=== PATIENT | female | born 1975 | race African-American/Black ===

== ENCOUNTER 2016-10-05 22:53 | Inpatient (IN) | payer OTHER ==
[~2016-10-05 22:53] MED LIST: LORT5TAB PO; Z.0.NO CURRENT MEDS
[2016-10-05 22:58] VITALS: BP 130/84; PULSE 83; RESP 16; TEMP 98.6; O2SAT 98
[2016-10-06] VITALS (7 sets, daily range): BP systolic 113–134; BP diastolic 78–94; PULSE 80–88; RESP 16–18; TEMP 97.9–98.3; O2SAT 97–100
[2016-10-06] MEDS ORDERED: SODIUM CHLORID 0.9% 500 ML INJ 500 ML IV ONE
[2016-10-06] MEDS ORDERED: NITROGLYCERIN 0.4 MG SL 25 TABS/BTL SL ONE
[2016-10-06] MEDS ORDERED: ASPIRIN 81 MG CHEW TAB PO ONE
--- NOTE | 2016-10-06 00:12 | RADRPT ---
EXAM DATE/TIME: 10/05/2016 23:54 [facility] COMPARISON: No previous studies available for comparison. INDICATIONS : Chest pain. MEDICAL HISTORY : None. SURGICAL HISTORY : None. ENCOUNTER: Initial ACUITY: 1 day PAIN SCORE: 6/10 LOCATION: Bilateral chest FINDINGS: A single view of the chest demonstrates the lungs to be symmetrically aerated without evidence of mas s, infiltrate or effusion. The cardiomediastinal contours are unremarkable. Osseous structures are intact. CONCLUSION: Normal examination for a patient of this age. Chance Connelly MD on October 06, 2016 at 0:11 Board Certified Radiologist. This report was verified electronically.
--- NOTE | 2016-10-06 00:36 | PD ---
HPI Chief Complaint: Chest Pain Time Seen by Provider: 23:50 Travel History International Travel<30 days: No Contact w/Intl Traveler<30days: No Traveled to known affect area: No History of Present Illness HPI The patient is a 40 year old female who presents to the [facility] emergency department with a history of constant chest pain that began at 2 PM today. It is sharp in character. It began while laying down. She has had n/v x2. She has had diaphoresis with the pain. No indigestion. No SoB. She denies having any radiation of the pain. She denies ever having a similar pain. She denies process of getting an any new exercise program or having any trauma to her chest. The patient reports that the pain is worse with taking a deep breath. It is worse with touching her chest wall. The patient denies having any cough, congestion, fever, or chills. She denies any family history of heart disease. She denies any personal history of hypertension, hyperlipidemia , or diabetes mellitus. She does report that she smokes a few cigarettes per day. She denies having any lower extremity edema, calf pain, or erythema. Otherwise on review of systems, the patient denies any neck pain, abdominal pain , diarrhea, urinary symptoms, or neurologic symptoms. She denies having any known sick contacts. LMP: hysterectomy. PFSH Past Medical History Narrative Medical The patient's past medical history is significant for chronic back pain. Medical History: Denies Significant Hx Diminished Hearing: No ?: Not : 3 Para: 2 Miscarriage: 1 : 0 Past Surgical History Narrative Surgical Patient's past surgical history is significant for a hysterectomy. Gynecologic Surgery: Yes (PARTIAL HYSTERECTOMY) Hysterectomy: Yes Social History Alcohol Use: Yes (rare) Tobacco Use: Yes (2-3 cigs per day.) Substance Use: No Allergies-Medications (Allergen,Severity, Reaction): Coded Allergies: No Known Allergies (Verified , 10/20/09) Reported Meds & Prescriptions Reported Meds & Active Scripts Active Reported Lortab (Hydrocodone-Acetaminophen) 10-325 Mg Tab 1 Tab PO TID PRN Lortab Review of Systems Except as stated in HPI: all other systems reviewed are Neg General / Constitutional: No: Fever Eyes: No: Visual changes HENT: No: Headaches, Rhinorrhea, Congestion Cardiovascular: Positive: Chest Pain or Discomfort, No: Dyspnea on exertion Respiratory: No: Shortness of Breath Gastrointestinal: Positive: Nausea, Vomiting, No: Abdominal Pain Genitourinary: No: Dysuria Musculoskeletal: No: Pain Skin: No Rash Neurologic: No: Weakness, Focal Abnormalities, Change in Mentation, Slurred Speech, Sensory Disturbance Psychiatric: No: Depression Endocrine: No: Polydipsia Hematologic/Lymphatic: No: Easy Bruising Physical Exam Narrative General: The patient is a well-developed well-nourished female in no acute distress. Head and Neck exam: Head is normocephalic atraumatic. Eyes: EOMI, pupils are equal round and reactive to light. Nose: Midline septum with pink mucous membranes Mouth: Dentition unremarkable. Moist mucus membranes. Posterior oropharynx is not erythematous. No tonsillar hypertrophy. Uvula midline. Airway patent. Neck: No palpable lymphadenopathy. No nuchal rigidity. No thyromegaly. Cardiovascular: Regular rate and rhythm without murmurs, gallops, or rubs. The patient has chest wall tenderness on palpation along the left sternal border. There is no crepitus or step-off. No erythema or ecchymosis. No flail segment. Lungs: Clear to auscultation bilaterally. No wheezes, rhonchi, or rales. Abdomen: Soft, without tenderness to palpation in all 4 quadrants of the abdomen. No guarding, rebound, or rigidity. Normal bowel sounds are audible. No tenderness on palpation of McBurney's point. Extremities: No clubbing, cyanosis, or edema. 2+ pulses in all 4 extremities. No calf tenderness on palpation. Back: No costovertebral angle tenderness to palpation. Neurologic Exam: Grossly nonfocal. Skin Exam: No rash noted. Intact skin that is warm and dry. Data Data Last Documented VS Vital Signs Date Time Temp Pulse Resp B/P Pulse Ox O2 Delivery O2 Flow Rate FiO2 10/06/16 01:00 80 18 113/78 98 Room Air 10/05/16 22:58 98.6 Orders Electrocardiogram (10/05/16 23:54) B-Type Natriuretic Peptide (10/05/16 23:54) Ckmb (Isoenzyme) Profile (10/05/16 23:54) Complete Blood Count With Diff (10/05/16 23:54) Comprehensive Metabolic Panel (10/05/16 23:54) D-Dimer (10/05/16 23:54) Magnesium (Mg) (10/05/16 23:54) Prothrombin Time / Inr (Pt) (10/05/16 23:54) Act Partial Throm Time (Ptt) (10/05/16 23:54) Troponin I (10/05/16 23:54) Lipase (10/05/16 23:54) Chest, Single Ap (10/05/16 23:54) Ecg Monitoring (10/05/16 23:54) Bilateral Bp Monitoring (10/05/16 23:54) Iv Access Insert/Monitor (10/05/16 23:54) Oximetry (10/05/16 23:54) Oxygen Administration (10/05/16 23:54) Aspirin Chew (Aspirin Chew) (10/06/16 00:00) Sodium Chloride 0.9% Flush (Ns Flush) (10/06/16 00:00) Nitroglycerin Sl (Nitrostat Sl) (10/06/16 00:00) Sodium Chlorid 0.9% 500 Ml Inj (Ns 500 M (10/06/16 00:00) Ed Urine Pregnancytest Poc (10/05/16 23:54) Sodium Chlor 0.9% 1000 Ml Inj (Ns 1000 M (10/06/16 01:15) Ondansetron Inj (Zofran Inj) (10/06/16 01:15) Ct Pulmonary Angiogram (10/06/16 01:27) Ceftriaxone Inj (Rocephin Inj) (10/06/16 02:45) Azithromycin Inj (Zithromax Inj) (10/06/16 02:45) Blood Culture (10/06/16 02:34) Ventilation & Perfusion Scan (10/06/16 ) Admit Order (Ed Use Only) (10/06/16 02:41) Labs Laboratory Tests Test 10/06/16 00:25 White Blood Count 13.5 TH/MM3 Red Blood Count 5.53 MIL/MM3 Hemoglobin 14.0 GM/DL Hematocrit 43.8 % Mean Corpuscular Volume 79.1 FL Mean Corpuscular Hemoglobin 25.4 PG Mean Corpuscular Hemoglobin 32.1 % Concent Red Cell Distribution Width 13.6 % Platelet Count 181 TH/MM3 Mean Platelet Volume 9.4 FL Neutrophils (%) (Auto) 85.1 % Lymphocytes (%) (Auto) 10.5 % Monocytes (%) (Auto) 3.9 % Eosinophils (%) (Auto) 0.0 % Basophils (%) (Auto) 0.5 % Neutrophils # (Auto) 11.5 TH/MM3 Lymphocytes # (Auto) 1.4 TH/MM3 Monocytes # (Auto) 0.5 TH/MM3 Eosinophils # (Auto) 0.0 TH/MM3 Basophils # (Auto) 0.1 TH/MM3 CBC Comment DIFF FINAL Differential Comment Prothrombin Time 10.0 SEC Prothromb Time International 0.9 RATIO Ratio Activated Partial 26.8 SEC Thromboplast Time D-Dimer Quantitative (PE/DVT) 21.60 MG/L FEU Sodium Level 134 MEQ/L Potassium Level 3.9 MEQ/L Chloride Level 98 MEQ/L Carbon Dioxide Level 27.3 MEQ/L Anion Gap 9 MEQ/L Blood Urea Nitrogen 12 MG/DL Creatinine 0.89 MG/DL Estimat Glomerular Filtration 86 ML/MIN Rate Random Glucose 117 MG/DL Calcium Level 8.7 MG/DL Magnesium Level 1.6 MG/DL Total Bilirubin 0.4 MG/DL Aspartate Amino Transf 18 U/L (AST/SGOT) Alanine Aminotransferase 13 U/L (ALT/SGPT) Alkaline Phosphatase 64 U/L Total Creatine Kinase 53 U/L Troponin I LESS THAN 0.02 NG/ML B-Type Natriuretic Peptide 4 PG/ML Total Protein 7.5 GM/DL Albumin 2.1 GM/DL Lipase 110 U/L MDM Medical Decision Making Medical Screen Exam Complete: Yes Emergency Medical Condition: Yes Medical Record Reviewed: Yes Interpretation(s) Last Impressions CT Angiography 10/06/16 0127 Signed Impressions: Service Date/Time: Thursday, October 06, 2016 02:08 - CONCLUSION: 1. Limited opacification of the pulmonary arteries. No obvious filling defects. However, if this requires further evaluation, a VQ scan could be performed if indicated. 2. Focal nonspecific infiltrate in the left lung base. This could be atelectasis versus pneumonia. 3. Nonspecific bilateral axillary lymph nodes. Chance Connelly MD Lung Scan-VQ Nuclear Medicine 10/06/16 0000 Signed Impressions: Service Date/Time: Thursday, October 06, 2016 04:01 - CONCLUSION: Unremarkable examination. Low probability for PE. Chance Connelly MD Chest X-Ray 10/05/16 5890 Signed Impressions: Service Date/Time: Wednesday, October 05, 2016 23:54 - CONCLUSION: Normal examination for a patient of this age. Chance Connelly MD Differential Diagnosis Costochondritis, versus pleurisy, versus pneumonia, versus viral syndrome, versus thorax, versus acute coronary syndrome, versus acid reflux, versus anxiety versus pulmonary embolism Narrative Course During the course of the patients emergency department visit, the patients history, examination, and differential diagnosis were reviewed with the patient. The patient had IV access obtained and blood work sent for analysis. The patient was placed on a cardiac surgeon with oximetry and blood pressure monitoring. An ECG was done on arrival. The patient's ECG reveals a sinus rhythm heart rate of 83, QRS duration is 88 ms, QTC 417 ms without any acute ST segment elevation, nonspecific T-wave abnormalities are noted, T waves are inverted in lead 3, V1. The patient was initially provided aspirin 162 mg by mouth 1. The patient was given normal saline 500 mL bolus, Zofran 4 mg IV. The patients laboratory studies were reviewed and remarkable for d-dimer was elevated at 21.6, CTA to rule out PE was ordered. A white count of 13.5, hemoglobin 14, platelets 181 with 85.1 neutrophils, CMP is remarkable for sodium 134, glucose 117, CPK 53, troponin I less than 0.02, BNP 4, lipase 110, PT 10, PTT 26.8. Radiology studies were reviewed and remarkable for a chest x-ray that shows no acute cardiopulmonary disease. CTA to rule out PE showed a limited study with limited opacification of the pulmonary arteries, no obvious filling defects, however if this requires further evaluation of VQ scan could be performed. Focal nonspecific INFILTRATE in the left lung base, nonspecific bilateral axillary lymph nodes are noted. The patient was started on Rocephin 1 g IV, Zithromax 500 IV as the area of infiltrate is concerning for pneumonia as she does have an elevated white blood cell count. Blood cultures 2 were ordered to be obtained prior to antibiotic administration. The patients results were discussed with the patient, including the plan of care. I explained that further testing and/ or monitoring is indicated based on the patients history, examination, and/ or laboratory findings. Therefore, I recommended admission for additional evaluation. The patient expressed understanding and was agreeable with this plan. The patient was admitted to the hospital in stable condition and [facility] Physician Communication Physician Communication The patient's case was discussed with Dr. Mccabe who did agree to admit the patient for further evaluation and treatment at this time. Diagnosis Primary Impression: Chest pain Qualified Code: R07.9 - Chest pain, unspecified type Additional Impression: Lung infiltrate on CT Admitting Information Admitting Physician Requests: Admit Liane Auguste MD Oct 06, 2016 00:36
[2016-10-06 00:46] LABS: AUTOMATED NEUTROPHIL # 11.5 TH/MM3 (1.8-7.7); BASOPHIL # 0.1 TH/MM3 (0-0.2); BASOPHIL % 0.5 % (0.0-2.0); HEMATOCRIT 43.8 % (35.0-46.0); HEMO FLAGS DIFF FINAL; LYMPH % 10.5 % (9.0-44.0); LYMPHOCYTE # 1.4 TH/MM3 (1.0-4.8); MEAN CELL VOLUME 79.1 FL (80.0-100.0); MEAN CORPUSCULAR HEMOGLOBIN 25.4 PG (27.0-34.0); MEAN CORPUSCULAR HGB CONC 32.1 % (32.0-36.0); MONO % 3.9 % (0.0-8.0); NEUT % 85.1 % (16.0-70.0); PLATELET COUNT 181 TH/MM3 (150-450); RED BLOOD COUNT 5.53 MIL/MM3 (4.00-5.30); RED CELL DISTRIBUTION WIDTH 13.6 % (11.6-17.2); WHITE BLOOD COUNT 13.5 TH/MM3 (4.0-11.0)
[2016-10-06 00:50] LABS: ALT (GPT) 13 U/L (10-53)
[2016-10-06 00:54] LABS: ALKALINE PHOSPHATASE 64 U/L (45-117); TOTAL BILIRUBIN ADULT 0.4 MG/DL (0.2-1.0)
[2016-10-06 00:55] LABS: ANION GAP 9 MEQ/L (5-15); AST (GOT) 18 U/L (15-37); BICARBONATE 27.3 MEQ/L (21.0-32.0); BLOOD UREA NITROGEN 12 MG/DL (7-18); CHLORIDE 98 MEQ/L (98-107); GLOMERULAR FILTRATION RATE 86 ML/MIN (>89); MAGNESIUM 1.6 MG/DL (1.5-2.5); POTASSIUM 3.9 MEQ/L (3.5-5.1); SODIUM (NA) 134 MEQ/L (136-145)
[2016-10-06 00:56] LABS: CREATINE KINASE 53 U/L (26-192)
[2016-10-06 01:03] LABS: APTT (PATIENT) 26.8 SEC (24.3-30.1); INTERNATIONAL NORMALIZED RATIO 0.9 RATIO
[2016-10-06] MEDS ORDERED: ONDANSETRON HCL 4 MG/2 ML VIAL IV ONE (01:15)
[2016-10-06] MEDS ORDERED: SODIUM CHLOR 0.9% 1000 ML INJ 1,000 ML IV ONE (01:15)
[2016-10-06] MEDS ORDERED: HYDR-3535 PO (01:17)
[2016-10-06] MEDS ORDERED: IOHEXOL 350 MG/ML 10 ML VIAL (for RAD DIAG) IV ONE (02:08)
--- NOTE | 2016-10-06 02:23 | RADRPT ---
EXAM DATE/TIME: 10/06/2016 02:08 [facility] COMPARISON: No previous studies available for comparison. INDICATIONS : Chest pain and evelvated D-Dimer. IV CONTRAST: 75 cc Omnipaque 350 (iohexol) IV RADIATION DOSE: 23.25 CTDIvol (mGy) MEDICAL HISTORY : None SURGICAL HISTORY : Hysterectomy. ENCOUNTER: Initial ACUITY: 1 day PAIN SCALE: 7/10 LOCATION: Bilateral chest TECHNIQUE: Volumetric scanning of the chest was performed using a pulmonary embolism protocol MIP images were re constructed. Using automated exposure control and adjustment of the mA and/or kV according to patien t size, radiation dose was kept as low as reasonably achievable to obtain optimal diagnostic quality images. DICOM format image data is available electronically for review and comparison. Follow-up recommendations for incidentally detected pulmonary nodules are based at a minimum on nodul e size and patient risk factors according to Fleischner Society Guidelines. FINDINGS: PULMONARY ARTERIES: There is limited opacification of the pulmonary arteries. No definite filling defects are seen. LUNGS: Focal mild infiltrate in the left lung base. Otherwise, the lungs are clear and well-aerated. PLEURAE: There is no pleural thickening or pleural effusion. MEDIASTINUM: There is good visualization of the great vessels of the middle mediastinum. No evidence of mediastin al or hilar adenopathy/mass. MUSCULOSKELETAL: Within normal limits for patient age. MISCELLANEOUS: There is a nonspecific bilateral axillary lymph nodes. CONCLUSION: 1. Limited opacification of the pulmonary arteries. No obvious filling defects. However, if this requ ires further evaluation, a VQ scan could be performed if indicated. 2. Focal nonspecific infiltrate in the left lung base. This could be atelectasis versus pneumonia. 3. Nonspecific bilateral axillary lymph nodes. Chance Connelly MD on October 06, 2016 at 2:18 Board Certified Radiologist. This report was verified electronically.
[2016-10-06] MEDS ORDERED: SODIUM CHLORIDE 0.9% FLUSH 10 ML FLUSH IVF PRN ×2 (02:45)
[2016-10-06] MEDS ORDERED: ONDANSETRON HCL 4 MG/2 ML VIAL IV PRN (02:45)
[2016-10-06] MEDS ORDERED: AZITHROMYCIN INJ 500 MG in SODIUM CHLOR 0.9% 250 ML INJ 250 ML IV ONE (02:45)
[2016-10-06] MEDS ORDERED: cefTRIAXone INJ 1,000 MG in SODIUM CHLORIDE 0.9% INJ 100 ML IV ONE (02:45)
--- NOTE | 2016-10-06 05:13 | RADRPT ---
EXAM DATE/TIME: 10/06/2016 04:01 [facility] COMPARISON: CHEST SINGLE AP, October 05, 2016, 23:54. INDICATIONS : Chest pain. DOSE: 1.8 mCi Tc99m DTPA 8.8 mCi Tc99m MAA MEDICAL HISTORY : Smoker. SURGICAL HISTORY : Hysterectomy. ENCOUNTER: Initial ACUITY: 1 day PAIN SCALE: 3/10 LOCATION: chest TECHNIQUE: Following five minutes of tidal breathing of DTPA aerosol, planar images of the lungs were performed in eight projections. The patient was then injected with MAA, and eight-view perfusion scan was perf ormed. FINDINGS: There is a homogeneous pattern of aerosol delivery to the periphery of both lungs. No focal ventilat ory defects are seen. The perfusion lung scan demonstrates a homogenous pattern of uptake in both lungs. No segmental or s ubsegmental defects are seen. CONCLUSION: Unremarkable examination. Low probability for PE. Chance Connelly MD on October 06, 2016 at 5:12 Board Certified Radiologist. This report was verified electronically.
[2016-10-06] MEDS: SODIUM CHLOR 0.9% 1000 ML INJ 1,000 ML IV SCH ×2 (05:26→11:21)
[2016-10-06 08:08] LABS: CREATINE KINASE 35 U/L (26-192)
--- NOTE | 2016-10-06 08:51 | EKG ---
Date Performed: 10/06/2016 Time Performed: 00:19:11 PTAGE: 40 years EKG: Sinus rhythm MINIMAL VOLTAGE CRITERIA FOR LVH, CONSIDER NORMAL VARIANT NONSPECIFIC T-WAVE ABNORMALITY BORDERLINE ECG PREVIOUS TRACING : 02/02/2006 06.44 DOCTOR: Guilherme Aceves Interpretating Date/Time 10/06/2016 08:50:37
[2016-10-06] MEDS ORDERED: SODIUM CHLORIDE 0.9% FLUSH 10 ML FLUSH IV FLUSH SCH (09:00)
[2016-10-06] MEDS ORDERED: ACETAMINOPHEN/HYDROcodone 325 MG/5 MG TAB PO PRN (09:15)
--- NOTE | 2016-10-06 10:41 | EKG ---
Date Performed: 10/06/2016 Time Performed: 07:33:23 PTAGE: 40 years EKG: Sinus rhythm NORMAL ECG PREVIOUS TRACING : 10/06/2016 00.19 DOCTOR: Guilherme Aceves Interpretating Date/Time 10/06/2016 10:40:26
--- NOTE | 2016-10-06 14:36 | HHI.HP ---
HPI Service [facility] Hospitalists Primary Care Physician No Primary Care Physician Admission Diagnosis CP, Pneumonia, n/v Chief Complaint: chest pain Travel History International Travel<30 Days: No Contact w/Intl Traveler <30 Da: No Traveled to Known Affected Are: No History of Present Illness Patient is a pleasant 40-year-old female who presented to the ER last night with complaint of continuous chest pain. Per patient the pain had been ongoing for approximately 8 hours. She feels that it may have started after a twisting movement was made in her torso. Patient states that the pain was associated with nausea and she vomited twice. Patient denies associated shortness of breath. Patient states that she had diaphoresis. Patient denies similar episodes of same. Patient feels the pain is now improved after receiving hydrocodone. Patient points to her left mid chest with radiation under left breast and to the left side. Patient states that previously the pain was reproducible with palpation and worse with deep breaths. Patient denies trauma. Patient denies history of coronary disease. Patient had an elevated d-dimer. CTA of the chest showed limited opacification of the pulmonary arteries. A VQ scan was also done which was low probability. Patient appears comfortable on room air. Review of Systems Constitutional: COMPLAINS OF: Diaphoretic episodes, DENIES: Fatigue, Fever, Weight gain, Weight loss, Chills, Dizziness, Change in appetite, Night Sweats Endocrine: DENIES: Heat/cold intolerance, Polydipsia, Polyuria, Polyphagia Eyes: DENIES: Blurred vision, Diplopia, Eye inflammation, Eye pain, Vision loss , Photosensitivity, Double Vision Ears, nose, mouth, throat: DENIES: Tinnitus, Hearing loss, Vertigo, Nasal discharge, Oral lesions, Throat pain, Hoarseness, Ear Pain, Running Nose, Epistaxis, Sinus Pain, Toothache, Odynophagia Respiratory: DENIES: Apneas, Cough, Snoring, Wheezing, Hemoptysis, Sputum production, Shortness of breath Cardiovascular: COMPLAINS OF: Chest pain, DENIES: Palpitations, Syncope, Dyspnea on Exertion, PND, Lower Extremity Edema, Orthopnea, Claudication Gastrointestinal: DENIES: Abdominal pain, Black stools, Bloody stools, BRB per rectum, Constipation, Diarrhea, GERD, Nausea, Reflux, Vomiting, Difficulty Swallowing, Anorexia Genitourinary: DENIES: Urinary frequency, Urinary incontinence, Urgency, Hematuria, Dysuria, Nocturia Musculoskeletal: DENIES: Joint pain, Muscle aches, Stiffness, Joint Swelling, Back pain, Neck pain Integumentary: DENIES: Abnormal pigmentation, Pruritus, Rash, Nail changes, Breast masses, Breast skin changes, Nipple discharge Hematologic/lymphatic: DENIES: Bruising, Lymphadenopathy Immunologic/allergic: DENIES: Eczema, Urticaria Neurologic: DENIES: Abnormal gait, Headache, Localized weakness, Paresthesias, Seizures, Speech Problems, Tremor, Poor Balance Psychiatric: DENIES: Anxiety, Confusion, Mood changes, Depression, Hallucinations, Agitation, Suicidal Ideation, Homicidal Ideation, Delusions, History of Bipolar, History of Schizophrenia Past Family Social History Past Medical History - Chronic low back pain Past Surgical History - Hysterectomy, sparing fallopian tubes and ovaries Reported Medications Reported Meds & Active Scripts Active Reported Lortab (Hydrocodone-Acetaminophen) 10-325 Mg Tab 1 Tab PO TID PRN Allergies: Coded Allergies: No Known Allergies (Verified , 10/20/09) Family History - Mother living age 67, osteoarthritis, hypertension, hyperlipidemia - Father age 60 due to lung cancer - Brother secondary to overdose Social History - Tobacco: 2-3 cigarettes per day for the last 3-4 years - No alcohol use - No illicit street drugs Physical Exam Vital Signs Vital Signs Date Time Temp Pulse Resp B/P Pulse Ox O2 Delivery O2 Flow Rate FiO2 10/06/16 12:00 83 10/06/16 11:34 98.3 87 18 134/94 97 10/06/16 08:37 98.1 84 16 123/82 100 10/06/16 08:00 88 10/06/16 05:36 97.9 85 18 132/82 98 10/06/16 03:28 98 10/06/16 01:00 80 18 113/78 98 Room Air 10/05/16 22:58 98.6 83 16 130/84 98 Physical Exam GENERAL: This is a well-nourished, well-developed patient, in no apparent distress. SKIN: No rashes, ecchymoses or lesions. Cool and dry. HEAD: Atraumatic. Normocephalic. No temporal or scalp tenderness. EYES: Pupils equal round and reactive. Extraocular motions intact. No scleral icterus. No injection or drainage. ENT: Nose without bleeding, purulent drainage or septal hematoma. Throat without erythema, tonsillar hypertrophy or exudate. Uvula midline. Airway patent. NECK: Trachea midline. No JVD or lymphadenopathy. Supple, nontender, no meningeal signs. CARDIOVASCULAR: Regular rate and rhythm without murmurs, gallops, or rubs. RESPIRATORY: Clear to auscultation. Breath sounds equal bilaterally. No wheezes , rales, or rhonchi. GASTROINTESTINAL: Abdomen soft, non-tender, nondistended. No hepato-splenomegaly , or palpable masses. No guarding. MUSCULOSKELETAL: Extremities without clubbing, cyanosis, or edema. No joint tenderness, effusion, or edema noted. No calf tenderness. Negative Homans sign bilaterally. NEUROLOGICAL: Awake and alert. Cranial nerves II through XII intact. Motor and sensory grossly within normal limits. Five out of 5 muscle strength in all muscle groups. Normal speech. Laboratory Laboratory Tests Test 10/06/16 10/06/16 00:25 07:13 White Blood Count 13.5 Red Blood Count 5.53 Hemoglobin 14.0 Hematocrit 43.8 Mean Corpuscular Volume 79.1 Mean Corpuscular Hemoglobin 25.4 Mean Corpuscular Hemoglobin 32.1 Concent Red Cell Distribution Width 13.6 Platelet Count 181 Mean Platelet Volume 9.4 Neutrophils (%) (Auto) 85.1 Lymphocytes (%) (Auto) 10.5 Monocytes (%) (Auto) 3.9 Eosinophils (%) (Auto) 0.0 Basophils (%) (Auto) 0.5 Neutrophils # (Auto) 11.5 Lymphocytes # (Auto) 1.4 Monocytes # (Auto) 0.5 Eosinophils # (Auto) 0.0 Basophils # (Auto) 0.1 CBC Comment DIFF FINAL Differential Comment Prothrombin Time 10.0 Prothromb Time International 0.9 Ratio Activated Partial 26.8 Thromboplast Time D-Dimer Quantitative (PE/DVT) 21.60 Sodium Level 134 Potassium Level 3.9 Chloride Level 98 Carbon Dioxide Level 27.3 Anion Gap 9 Blood Urea Nitrogen 12 Creatinine 0.89 Estimat Glomerular Filtration 86 Rate Random Glucose 117 Calcium Level 8.7 Magnesium Level 1.6 Total Bilirubin 0.4 Aspartate Amino Transf 18 (AST/SGOT) Alanine Aminotransferase 13 (ALT/SGPT) Alkaline Phosphatase 64 Total Creatine Kinase 53 35 Troponin I LESS THAN 0.02 LESS THAN 0.02 B-Type Natriuretic Peptide 4 Total Protein 7.5 Albumin 2.1 Lipase 110 Date/Time Procedure Status Source Growth 10/06/16 03:15 Aerobic Blood Culture Received Blood Peripheral Pending 10/06/16 03:15 Anaerobic Blood Culture Received Blood Peripheral Pending Result Diagram: 10/06/16 0025 10/06/16 0025 Imaging GENERAL: This is a well-nourished, well-developed patient, in no apparent distress. CARDIOVASCULAR: Regular rate and rhythm without murmurs, gallops, or rubs. RESPIRATORY: Clear to auscultation. Breath sounds equal bilaterally. No wheezes , rales, or rhonchi. GASTROINTESTINAL: Abdomen soft, non-tender, nondistended. Normal active bowel sounds MUSCULOSKELETAL: Extremities without clubbing, cyanosis, or edema. NEURO: Alert & Oriented x4 to person, place, time, situation. Moves all ext x4 Septic Shock Reassessment Heart: Regular rate and rhythm Lungs: Clear Skin: Warm Peripheral Pulses: Bounding Right Radial Bounding Left Radial Bounding Right Popliteal Bounding Left Popliteal Bounding Right Dorsalis Pedis Bounding Left Dorsalis Pedis Bounding Right Posterior Tibial Bounding Left Posterior Tibial Capillary Refill: Brisk Assessment and Plan Problem List: (1) Atypical chest pain Status: Acute Plan: - Patient complains of reproducible chest pain following twisting motion of her torso - Pain improved with hydrocodone - 2 sets of cardiac enzymes were obtained and both normal - Serial EKGs showed no acute ischemic changes - Patient has no history of personal coronary disease nor family history of coronary disease - Symptoms are unlikely to represent acute coronary syndrome given above findings - Most likely this is muscular skeletal chest pain - Findings on CTA of chest and VQ scan noted - Patient denies cough. Patient denies sweats or fever. Patient is comfortable on room air - Patient received Rocephin and azithromycin in the ER - Patient does not appear to have pneumonia - I note the minimal elevation in her white count, however there has been no fever nor clinical signs consistent with pneumonia - I will not continue antibiotics further at this point - Discharge to home on Naprosyn 500 mg by mouth twice a day 1 week, to be taken with food - [place] 5325 mg every 6 hours when necessary pain, quantity 12 - Patient is instructed to follow-up with her [facility] primary care physician, Dr. Noman Guardado - Return to the ER if any problems Mata Aragon DO Oct 06, 2016 14:36
[2016-10-06] MEDS ORDERED: HYDR-3516 PO (14:38)
[2016-10-06] MEDS ORDERED: NAPR500 PO (14:38)
--- NOTE | 2016-10-06 14:40 | HHI.DCPOC ---
Discharge Care Plan Diagnosis: (1) Atypical chest pain Goals to Promote Your Health * To prevent worsening of your condition and complications * To maintain your health at the optimal level Directions to Meet Your Goals Take your medications as prescribed Follow your dietary instruction Follow activity as directed Keep your appointments as scheduled Take your immunizations and boosters as scheduled If your symptoms worsen call your PCP, if no PCP go to Urgent Care Center or Emergency Room Smoking is Dangerous to Your Health. Avoid second hand smoke Call the 24-hour hour crisis hotline for domestic abuse at Mata Aragon DO Oct 06, 2016 14:40
[2016-10-06 16:10] LABS: CREATINE KINASE 30 U/L (26-192)
--- NOTE | 2016-10-07 15:09 | EKG ---
Date Performed: 10/06/2016 Time Performed: 13:01:17 PTAGE: 40 years EKG: Sinus rhythm MINIMAL VOLTAGE CRITERIA FOR LVH, CONSIDER NORMAL VARIANT NONSPECIFIC T-WAVE ABNORMALITY Intraventri cular conduction delay Likely no significant change BORDERLINE ECG PREVIOUS TRACING : 10/06/2016 07.33 DOCTOR: Adelaida Saleh Interpretating Date/Time 10/07/2016 15:03:25
== END 2016-10-06 15:09 | disposition home or self-care (01) | DRG 313 ==
LOC: NEPC 22:53 → NEDA 10-06 02:43 → NEPFCDU 10-06 05:32
PROVIDERS: ADMIT Hospitalist; ATTEND Hospitalist
DX: R07.89 Other chest pain (principal); F17.210 Nicotine dependence, cigarettes, uncomplicated; G89.29 Other chronic pain; M54.5 Low back pain
CPT/HCPCS: 71010; 71275; 78582; 80053; 82550; 83690; 83735; 83880; 84484; 85025; 85379; 85610; 85730; 87040; 93005; A9540; A9567; J0456; J0696; J2405; J7030; J7040; J7050; Q9967

== ENCOUNTER 2016-12-30 08:15 | Inpatient (IN) | payer OTHER ==
[2016-12-30] VITALS (15 sets, daily range): BP systolic 131–180; BP diastolic 66–114; PULSE 59–84; RESP 18; TEMP 97.8–98.6; O2SAT 97–100
[~2016-12-30] VITALS: Ht 172.7 cm; Wt 81.1 kg
[~2016-12-30 08:15] MED LIST changes: +HYDR-3516 PO; -LORT5TAB PO; +NAPR500 PO; -Z.0.NO CURRENT MEDS
[2016-12-30] MEDS ORDERED: SODIUM CHLOR 0.9% 1000 ML INJ 1,000 ML IV ONE (08:20)
--- NOTE | 2016-12-30 08:25 | PD ---
HPI Chief Complaint: Neuro Symptoms/ Deficits Time Seen by Provider: 08:20 Travel History International Travel<30 days: No Contact w/Intl Traveler<30days: No Traveled to known affect area: No History of Present Illness HPI This is a 41-year-old female with a history of hypertension, not currently on medication, presents today with right sided facial droop and right upper and right lower extremity weakness. The patient states that she went to bed last night. She states at that time she had elevated blood pressure with no symptoms. She states that she woke up around 6 AM. Her mom states that she saw her at 6:30 and thought that she was appearing normal. She reports not feeling "right" last night. She states at that time she checked her blood pressure and found it to be elevated. PFSH Past Medical History Cancer: No Cardiovascular Problems: No Diminished Hearing: No Endocrine: No Genitourinary: No Immune Disorder: No Musculoskeletal: Yes Neurologic: No Psychiatric: No Reproductive: No Respiratory: Yes (NEW DX OF LLL PNEUMONIA) : 3 Para: 2 Miscarriage: 1 : 0 Past Surgical History Gynecologic Surgery: Yes (PARTIAL HYSTERECTOMY) Hysterectomy: Yes Social History Alcohol Use: Yes (rare) Tobacco Use: Yes (2-3 cigs per day.) Substance Use: No Allergies-Medications (Allergen,Severity, Reaction): Coded Allergies: No Known Allergies (Verified , 12/30/16) Reported Meds & Prescriptions Reported Meds & Active Scripts Active Reported Hydrocodone-Acetaminophen 5-325 mg Tab 1 Tab PO Q6H PRN Review of Systems Except as stated in HPI: all other systems reviewed are Neg General / Constitutional: No: Fever, Chills Eyes: No: Diploplia, Blurred Vision HENT: No: Headaches, Neck Pain Cardiovascular: No: Chest Pain or Discomfort, Palpitations Respiratory: No: Cough, Shortness of Breath Gastrointestinal: No: Nausea, Vomiting Genitourinary: No: Frequency, Dysuria Musculoskeletal: No: Weakness, Pain Neurologic: Positive: Weakness (right upper and right lower extremity), Focal Abnormalities (right upper and right lower extremity weakness.), Other (right sided facial droop), No: Dizziness, Headache, Change in Mentation, Slurred Speech, Sensory Disturbance Psychiatric: No: Anxiety, Substance Abuse Physical Exam Narrative GENERAL: Well-developed well-nourished female in no obvious respiratory distress. SKIN: Focused skin assessment warm/dry. HEAD: Atraumatic. Normocephalic. EYES: Pupils equal and round. Extraocular muscles are intact. No scleral icterus. No injection or drainage. ENT: No nasal bleeding or discharge. Mucous membranes pink and moist. NECK: Trachea midline. Supple. CARDIOVASCULAR: Regular rate and rhythm. No murmur appreciated. RESPIRATORY: No accessory muscle use. Clear to auscultation. Breath sounds equal bilaterally. GASTROINTESTINAL: Abdomen soft, non-tender, nondistended. Hepatic and splenic margins not palpable. MUSCULOSKELETAL: No obvious deformities. No clubbing. No cyanosis. No edema. NEUROLOGICAL: Awake and alert. Slight right sided facial droop. Motor grossly within normal limits on the left side, upper and lower. 4+ out of 5 on the right upper and right lower extremity. Normal speech. PSYCHIATRIC: Appropriate mood and affect; insight and judgment normal. Data Data Last Documented VS Vital Signs Date Time Temp Pulse Resp B/P (MAP) Pulse Ox O2 Delivery O2 Flow Rate FiO2 12/30/16 10:15 63 18 169/112 (131) 100 Room Air 12/30/16 08:46 98.4 Orders Orders Activity Bed Rest (12/30/16 ) Electrocardiogram (12/30/16 ) I-Stat Creatinine (12/30/16 08:20) I-Stat Profile (12/30/16 08:20) Prothrombin Time / Inr (Pt) (12/30/16 08:20) Act Partial Throm Time (Ptt) (12/30/16 08:20) Complete Blood Count With Diff (12/30/16 08:20) Fibrinogen (12/30/16 08:20) Creatine Kinase (Cpk) (12/30/16 08:20) Troponin I (12/30/16 08:20) Ua Includes Microscopic (12/30/16 08:20) Drug Screen, Random Urine (12/30/16 08:20) Type And Screen (12/30/16 08:20) Ct Brain W/O Iv Contrast(Rout) (12/30/16 ) Beta Hcg (Quant/Titer) (12/30/16 08:20) Consult Neurology (12/30/16 ) Blood Glucose (12/30/16 08:20) Ecg Monitoring (12/30/16 08:20) Neuro Checks Q2HX12,Q4H (12/30/16 08:20) Nursing Bedside Swallow Assess .ONCE (12/30/16 08:20) Iv Access Insert/Monitor (12/30/16 08:20) NPO (12/30/16 08:20) Oximetry (12/30/16 08:20) Oxygen Administration (12/30/16 08:20) Sodium Chlor 0.9% 1000 Ml Inj (Ns 1000 M (12/30/16 08:20) Resp Oxygen Bc C Titrat 1-4 L (12/30/16 08:20) Cath For Specimen (12/30/16 08:20) Metoprolol Tartrate Inj (Lopressor Inj) (12/30/16 08:30) Cta Brain W Iv Contrast W 3d (12/30/16 08:26) Cta Neck W Iv Contrast W 3d (12/30/16 08:26) Ct Cerebral Perf W Iv Cont W3d (12/30/16 08:26) (Hub Use Only)Inp Phy Cons/Ref (12/30/16 ) Iodixanol 320 Inj (Rad Ct) (Visipaque 32 (12/30/16 08:47) Nih Stroke Scale - Nihss .On admission and discharge (12/30/16 09:08) Neuro Checks Q2H (12/30/16 09:08) Case Management Consult (12/30/16 ) Activity Bed Rest (12/30/16 09:08) Nursing Bedside Swallow Assess .ONCE (12/30/16 09:08) Scd Bilateral/Knee High EMORY.QSHIFT (12/30/16 09:08) Hemoglobin (Hgb) A1c (12/30/16 09:08) Lipid Profile (12/31/16 06:00) Mra Brain W/O Contrast (Cow) (12/30/16 ) Mri Brain W/O Contrast (12/30/16 ) Echo 2d Comp With Doppler (12/30/16 ) Resp Oxygen Bc C Titrat 1-4 L (12/30/16 ) ^ Hold Medication (12/30/16 09:08) Sodium Chloride 0.9% Flush (Ns Flush) (12/30/16 21:00) Sodium Chloride 0.9% Flush (Ns Flush) (12/30/16 09:15) Sodium Chlor 0.9% 1000 Ml Inj (Ns 1000 M (12/30/16 09:08) Enalaprilat Inj (Vasotec Inj) (12/30/16 09:15) Aspirin Supp (Aspirin Supp) (12/30/16 09:15) Bedside Glucose EMORY.CSUGAR (12/30/16 09:08) ^ Discontinue Insulin Orders (12/30/16 09:08) Insulin Aspart Supplemtl Scale (Novolog (12/30/16 12:00) Dextrose 50% In Chiquis (Vial) Inj (D50w (Vi (12/30/16 09:15) Glucagon Inj (Glucagon Inj) (12/30/16 09:15) Rustic Terrazzo Setter / Telemetry EMORY.Q8H (12/30/16 09:08) Consult Stroke Navigator (12/30/16 ) Lupus Anticoagulant Drvvt (12/30/16 09:08) Cardiolipin Abs Igg,Igm,Iga (12/30/16 09:08) Protein C Activity (12/30/16 09:08) Protein S Activity (12/30/16 09:08) Factor V (5) Mutation (Leiden) (12/30/16 09:08) Prothrombin [id number] Mutation (12/30/16 09:08) Westergren Sedimentation Rate (12/30/16 09:08) Rapid Plasmin Reagin Screen (12/30/16 09:08) Lorazepam Inj (Ativan Inj) (12/30/16 09:45) (Hub Use Only)Inp Phy Cons/Ref (12/30/16 09:41) Admit To Inpatient (12/30/16 ) Code Status (12/30/16 09:43) Vital Signs (Adult) Q4H (12/30/16 09:43) Nih Stroke Scale - Nihss .On admission and discharge (12/30/16 09:43) Neuro Checks Q4H (12/30/16 09:43) Notify Dr: Other (12/30/16 09:43) Consult Pt Eval & Treat (12/30/16 09:43) Activity Bed Rest (12/30/16 09:43) Nursing Bedside Swallow Assess .ONCE (12/30/16 09:43) Scd Bilateral/Knee High EMROY.QSHIFT (12/30/16 09:43) Hemoglobin (Hgb) A1c (12/30/16 09:43) Holter Monitor Recording (12/30/16 ) Resp Oxygen Bc C Titrat 1-4 L (12/30/16 ) ^ Hold Medication (12/30/16 09:43) Sodium Chloride 0.9% Flush (Ns Flush) (12/30/16 21:00) Sodium Chloride 0.9% Flush (Ns Flush) (12/30/16 09:45) Enalaprilat Inj (Vasotec Inj) (12/30/16 09:45) Labetalol Inj (Trandate Inj) (12/30/16 09:45) Aspirin (Aspirin) (12/31/16 09:00) Atorvastatin (Lipitor) (12/30/16 21:00) Rustic Terrazzo Setter / Telemetry EMORY.Q8H (12/30/16 09:43) Scd Bilateral/Knee High EMORY.BID (12/30/16 09:43) Inpatient Certification (12/30/16 ) Diet Heart Healthy (12/30/16 Breakfast) 1/2 Ns + Kcl 20 Meq Inj (1/2 Ns + Kcl 20 (12/30/16 10:00) Thyroid Stimulating Hormone (12/30/16 09:48) Free Thyroxine (T4) (12/30/16 09:48) Rapid Plasma Regin (Rpr) W Ttr (12/30/16 09:48) Vitamin B12 (12/30/16 09:48) Folate, Serum (12/30/16 09:48) Ammonia (12/30/16 09:48) Acetaminophen (Tylenol) (12/30/16 10:00) Admit Order (Ed Use Only) (12/30/16 10:30) Labs Laboratory Tests Test 12/30/16 08:20 12/30/16 08:57 White Blood Count 5.8 TH/MM3 Red Blood Count 5.02 MIL/MM3 Hemoglobin 13.0 GM/DL Bedside Hemoglobin 13.9 G/DL Hematocrit 39.6 % Bedside Hematocrit 41.0 % Mean Corpuscular Volume 78.8 FL Mean Corpuscular Hemoglobin 26.0 PG Mean Corpuscular Hemoglobin Concent 32.9 % Red Cell Distribution Width 13.9 % Platelet Count 179 TH/MM3 Mean Platelet Volume 8.6 FL Neutrophils (%) (Auto) 56.5 % Lymphocytes (%) (Auto) 35.5 % Monocytes (%) (Auto) 6.6 % Eosinophils (%) (Auto) 0.2 % Basophils (%) (Auto) 1.2 % Neutrophils # (Auto) 3.3 TH/MM3 Lymphocytes # (Auto) 2.1 TH/MM3 Monocytes # (Auto) 0.4 TH/MM3 Eosinophils # (Auto) 0.0 TH/MM3 Basophils # (Auto) 0.1 TH/MM3 CBC Comment DIFF FINAL Differential Comment Prothrombin Time 9.9 SEC Prothromb Time International Ratio 0.9 RATIO Activated Partial Thromboplast Time 27.2 SEC Fibrinogen 699 mg/dL Bedside Sodium 139 MMOL/L Bedside Potassium 4.1 MMOL/L Bedside Chloride 103 MMOL/L Bedside Blood Urea Nitrogen 11 MG/DL Bedside Creatinine 0.9 MG/DL Bedside Glucose 99 MG/DL Total Creatine Kinase 117 U/L Troponin I LESS THAN 0.02 NG/ML Human Chorionic Gonadotropin, Quant LESS THAN 1 MIU/ML Urine Color LIGHT-YELLOW Urine Turbidity HAZY Urine pH 7.5 Urine Specific [place] 1.026 Urine Protein 100 mg/dL Urine Glucose (UA) NEG mg/dL Urine Ketones NEG mg/dL Urine Occult Blood MOD Urine Nitrite NEG Urine Bilirubin NEG Urine Urobilinogen LESS THAN 2.0 MG/DL Urine Leukocyte Esterase SMALL Urine RBC 12 /hpf Urine WBC 22 /hpf Urine Squamous Epithelial Cells 14 /hpf Urine Bacteria OCC /hpf Urine Mucus FEW /lpf Urine Opiates Screen NEG Urine Barbiturates Screen NEG Urine Amphetamines Screen NEG Urine Benzodiazepines Screen NEG Urine Cocaine Screen NEG Urine Cannabinoids Screen POS MDM Medical Screen Exam Complete: Yes Emergency Medical Condition: Yes Differential Diagnosis Hypertensive emergency versus CVA versus Milian's palsy Narrative Course 41-year-old female presents with right sided facial droop and right upper and right lower extremity weakness. The patient states she woke up this way. Upon further questioning after CT scan patient also states that she may have had some early symptoms last night prior to bed. The patient certainly out of the window for TPA. She was seen and evaluated by Dr. Heath Sahni, neurologist on- call today. He agrees at this time that she is not a TPA candidate. She is noted to have a blood pressure of 180/114. In agreement with Dr. Sahni, the patient was given Lopressor 5 mg I V times one dose. [facility] She will be getting an of the brain. Currently the working diagnosis is CVA versus TIA versus hypertensive emergency. Critical Care Narrative Aggregate critical care time was 45 minutes. Time to perform other separately billable procedures was not included in the critical care time. My time did not include minutes spent treating any other patients simultaneously or on activities that did not directly contribute to the patient's treatment. The services I provided to this patient were to treat and/or prevent clinically significant deterioration that could result in: I provided critical care services requiring my management, as noted below: Chart data review, documentation time, medication orders and management, vital sign assessments/reviewing monitor data, ordering and reviewing lab tests, ordering and interpreting/reviewing x-rays and diagnostic studies, care of the patient and discussion of the patient with the admitting physicians. Stroke Alert NIHSS NIH Stroke Scale Result: 5 NIHSS Time Completed: 08:25 Thrombolytic Contraindications Contraindications: Uncontrolled HTN at event Contraindications Comment: Patient reports waking up with the symptoms. Mother told nurse that she last saw her at 6:30 normal. Diagnosis Diagnosis: Primary Impression: CVA (cerebral vascular accident) Additional Impression: Uncontrolled hypertension Admitting Physician Requests: Admit Clifford Whitmore MD Dec 30, 2016 08:25
--- NOTE | 2016-12-30 08:36 | RADRPT ---
EXAM DATE/TIME: 12/30/2016 08:19 [facility] COMPARISON: CT PULMONARY ANGIOGRAM, October 06, 2016, 2:08. INDICATIONS : Right sided facial droop and slurred speech. RADIATION DOSE: 56.35 CTDIvol (mGy) This report was called by Dr. Gregory Mcgee to Dr. Clifford Whitmore at 8: 30am MEDICAL HISTORY : Non-responsive. SURGICAL HISTORY : Non-responsive. ENCOUNTER: Initial ACUITY: 1 day PAIN SCALE: 0/10 LOCATION: cranial TECHNIQUE: Multiple contiguous axial images were obtained of the head. Using automated exposure control and adj ustment of the mA and/or kV according to patient size, radiation dose was kept as low as reasonably a chievable to obtain optimal diagnostic quality images. DICOM format image data is available electro nically for review and comparison. FINDINGS: CEREBRUM: The ventricles are normal for age. No evidence of midline shift, mass lesion, hemorrhage or acute in farction. No extra-axial fluid collections are seen. POSTERIOR FOSSA: The cerebellum and brainstem are intact. The 4th ventricle is midline. The cerebellopontine angle i s unremarkable. EXTRACRANIAL: The visualized portion of the orbits is intact. SKULL: The calvaria is intact. No evidence of skull fracture. CONCLUSION: 1. No acute cranial abnormality. Rudy Mcgee MD on December 30, 2016 at 8:31 Board Certified Radiologist. This report was verified electronically.
[2016-12-30 08:38] LABS: AUTOMATED NEUTROPHIL # 3.3 TH/MM3 (1.8-7.7); BASOPHIL # 0.1 TH/MM3 (0-0.2); BASOPHIL % 1.2 % (0.0-2.0); EOSINOPHIL % 0.2 % (0.0-4.0); HEMATOCRIT 39.6 % (35.0-46.0); HEMO FLAGS DIFF FINAL; I-STAT POTASSIUM 4.1 MMOL/L (3.5-4.9); I-STAT SODIUM 139 MMOL/L (138-146); LYMPH % 35.5 % (9.0-44.0); LYMPHOCYTE # 2.1 TH/MM3 (1.0-4.8); MEAN CELL VOLUME 78.8 FL (80.0-100.0); MEAN CORPUSCULAR HGB CONC 32.9 % (32.0-36.0); MONO % 6.6 % (0.0-8.0); NEUT % 56.5 % (16.0-70.0); PLATELET COUNT 179 TH/MM3 (150-450); RED BLOOD COUNT 5.02 MIL/MM3 (4.00-5.30); RED CELL DISTRIBUTION WIDTH 13.9 % (11.6-17.2); WHITE BLOOD COUNT 5.8 TH/MM3 (4.0-11.0)
[2016-12-30] MEDS ORDERED: IODIXANOL 320 MG/ML 10 ML VIAL (for Rad CT) IVCONTRAST ONE (08:47)
[2016-12-30] MEDS: METOPROLOL TARTRATE 5 MG/5 ML VIAL IV PUSH ONE ×3 (08:48→09:05)
[2016-12-30] MEDS ORDERED: HYDR-3516 PO (08:51)
[2016-12-30 08:53] LABS: APTT (PATIENT) 27.2 SEC (24.3-30.1); INTERNATIONAL NORMALIZED RATIO 0.9 RATIO; PROTHROMBIN TIME - PATIENT 9.9 SEC (9.8-11.6)
[2016-12-30 09:01] LABS: BETA HCG QUANT LESS THAN 1 MIU/ML (0-5); CREATINE KINASE 117 U/L (26-192)
[2016-12-30] MEDS ORDERED: SODIUM CHLOR 0.9% 1000 ML INJ 1,000 ML IV SCH (09:08)
--- NOTE | 2016-12-30 09:10 | RADRPT ---
EXAM DATE/TIME: 12/30/2016 08:26 [facility] COMPARISON: CT BRAIN W/O CONTRAST, December 30, 2016, 8:19. INDICATIONS : Stroke alert, right sided weakness and slurred speech. IV CONTRAST: 100 cc Visipaque (iodixanol) IV ; Cumulative dose for multiple exams. RADIATION DOSE: 141.00 CTDIvol (mGy) MEDICAL HISTORY : Non-responsive. SURGICAL HISTORY : Non-responsive. ENCOUNTER: Initial ACUITY: 1 day PAIN SCALE: 0/10 LOCATION: cranial TECHNIQUE: CT perfusion of the brain was performed with calculation of input and output functions and generation of color coded blood flow, blood volume and mean transit time maps. Using automated exposure control and adjustment of the mA and/or kV according to patient size, radiation dose was kept as low as reas onably achievable to obtain optimal diagnostic quality images. DICOM format image data is available electronically for review and comparison. FINDINGS: There is symmetric perfusion to both cerebral hemispheres, cerebellar hemispheres and normal flow is identified to the brainstem. There are no findings of infarction or ischemic penumbra. CONCLUSION: 1. Negative CT cerebral perfusion. Rudy Mcgee MD on December 30, 2016 at 9:07 Board Certified Radiologist. This report was verified electronically.
[2016-12-30] MEDS ORDERED: SODIUM CHLORIDE 0.9% FLUSH 5 ML FLUSH IV FLUSH PRN (09:15)
[2016-12-30] MEDS ORDERED: GLUCAGON 1 MG/ML VIAL OTHER PRN (09:15)
[2016-12-30] MEDS ORDERED: ENALAPRILAT 1.25 MG/ML VIAL IV PUSH PRN ×2 (09:15→09:45)
[2016-12-30] MEDS ORDERED: DEXTROSE 50% IN WATER 50 ML VIAL(D50) IV PUSH PRN (09:15)
--- NOTE | 2016-12-30 09:29 | MB ---
cc: BRUNA STORM M.D. DATE OF CONSULTATION 12/30/[address] Whitmore REASON FOR CONSULTATION Stroke alert HISTORY OF PRESENT ILLNESS Ms. Linton is a very pleasant 41-year-old female who presented to the emergency room with right-sided weakness and right facial droop. The patient states that she woke up with these symptoms. She thinks she may have had some weight mild weakness yesterday, but is not 100% sure that. Her mother felt that the symptoms came on after she woke up, but on questioning the patient, she is certain that she had the symptoms when she awoke this morning. She denies any difficulty with headache. She has had some mild speech dysarthria, but no aphasia. She feels weak in both the right arm and right leg. She has not had any double vision, vision loss, vertigo or other neurologic complaints. She has no previous history of any neurologic symptoms. PAST MEDICAL HISTORY She has history of: 1. Chronic low back pain 2. Partial hysterectomy 3. Pneumonia 4. She has had one miscarriage in the past. MEDICATIONS She takes hydrocodone as needed for pain. ALLERGIES None known. I SOCIAL HISTORY She drinks alcohol rarely. She does smoke. Denies any history of any other drug use. REVIEW OF SYSTEMS Otherwise unremarkable. Denies chest pain or palpitations, shortness of breath. Denies any history of blood clots or bleeding disorders. NEUROLOGIC EXAMINATION VITAL SIGNS: Blood pressure was 180/114, pulse 73 regular, respiratory rate is 18, temperature 98.4 degrees. Higher cortical functions are normal including speech. Cranial nerves, she has a very mild right facial weakness which is a right upper motor neuron VII palsy. The pupils are 2 mm symmetric and reactive. The extraocular movements are intact. On motor exam, she has trace weakness in the right arm and right leg rated at about 4+/5 both proximally and distally. She had a mild pronator drift right upper extremity. She has diminished fine motor skills in the right hand. Reflexes are symmetric. Sensory exam intact. A CT of the brain is unremarkable. The patient has undergone CT angiogram of the brain. I discussed this with Dr. Gregory Mcgee who is company controller for interventional radiology today and he states there is no sign of large vessel occlusion. CT perfusion is pending. LABORATORY DATA The sodium is 139. The potassium 4.1, chloride 103, BUN is 11, creatinine 0.9, glucose 99, PT 9.9, INR 0.9, APTT 27.2. White count is 5100, hemoglobin 13, hematocrit 39.6% platelet count 179,000. EKG sinus rhythm. IMPRESSION Probable left hemisphere stroke versus hypertensive encephalopathy. She really has no history of migraine headaches, so I doubt hemiplegic migraine. Demyelinating disease would be in the differential, but less likely with no prior history. RECOMMENDATIONS The patient is not a candidate for IV TPA because she definitely woke up with these symptoms and is out of the time frame. There is no evidence for any large vessel occlusion which would be amendable to interventional therapy. Her NIH stroke scale currently is five. At the present time would recommend moderate blood pressure control for the possibility of hypertensive encephalopathy treating blood pressure of 180/90. We will start her on aspirin and also recommend further evaluations and MRI and MRA of the brain. I will review the CT angiogram of the carotid arteries. Because of her young age, we will check labs for hypercoagulable state as well as echocardiogram. Check a lipid panel, as well and we will monitor cardiac telemetry to rule out atrial fibrillation. Thank you for asking us to see this nice patient in consult. MD MAURICIO Jacobs/GILBERTO /9:04 AM /9:18 AM
--- NOTE | 2016-12-30 09:30 | RADRPT ---
EXAM DATE/TIME: 12/30/2016 08:31 [facility] COMPARISON: CT BRAIN CEREBRAL PERF ANALYSIS W/3D, December 30, 2016, 8:26. CT BRAIN W/O CONTRAST, December 30 7, 8:19. INDICATIONS : Stroke alert, right sided weakness and slurred speech. IV CONTRAST: 100 cc Visipaque (iodixanol) IV ; Cumulative dose for multiple exams. RADIATION DOSE: 16.61 CTDIvol (mGy) ; Combined studies MEDICAL HISTORY : Non-responsive. SURGICAL HISTORY : Non-responsive. ENCOUNTER: Initial ACUITY: 1 day PAIN SCALE: 0/10 LOCATION: cranial TECHNIQUE: Volumetric scanning was performed using a multi-row detector CT scanner. The data was post processed with a variety of visualization algorithms including full volume maximum intensity projection, multi -planar sliding thin slab reformation, curved planar reformation, and surface rendering techniques. Using automated exposure control and adjustment of the mA and/or kV according to patient size, radiat ion dose was kept as low as reasonably achievable to obtain optimal diagnostic quality images. DICO M format image data is available electronically for review and comparison. FINDINGS: The examination is degraded by motion artifact as well as venous contamination. There is visualizatio n of the major intracranial arteries out to the second-order branch vessels. There is no evidence fo r aneurysm, vessel truncation or stenosis, and no evidence for vascular malformation. CONCLUSION: No acute abnormality. Ousmane Crawford Jr., MD on December 30, 2016 at 9:25 Board Certified Radiologist. This report was verified electronically.
--- NOTE | 2016-12-30 09:33 | RADRPT ---
EXAM DATE/TIME: 12/30/2016 08:31 [facility] COMPARISON: No previous studies available for comparison. INDICATIONS : Stroke alert, right sided weakness and slurred speech. IV CONTRAST: 100 cc Visipaque (iodixanol) IV ; Cumulative dose for multiple exams. RADIATION DOSE: 16.61 CTDIvol (mGy) ; Combined studies MEDICAL HISTORY : Non-responsive. SURGICAL HISTORY : Non-responsive. ENCOUNTER: Initial ACUITY: 1 day PAIN SCALE: 0/10 LOCATION: neck Elevated flow velocities and ICA/CCA ratios have been found to correlate with increased degrees of vessel stenosis, calculated as percentage of diameter relative to a normal segment of distal ICA/CCA. TECHNIQUE: Volumetric scanning was performed using a multirow detector CT scanner. The data was post processed with a variety of visualization algorithms including full-volume maximum intensity projection, multip lanar sliding thin-slab reformation, curved-planar reformation, and surface-rendering techniques. Us ing automated exposure control and adjustment of the mA and/or kV according to patient size, radiatio n dose was kept as low as reasonably achievable to obtain optimal diagnostic quality images. DICOM f ormat image data is available electronically for review and comparison. FINDINGS: AORTIC ARCH: There is variant anatomy at the arch. 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 Arch vessels are patent. RIGHT CAROTID: The common carotid artery is intact. The carotid bulb has a normal configuration without ulceration o r narrowing. The internal carotid artery lumen is smooth without stenosis. The external carotid neil ry is intact. LEFT CAROTID: The common carotid artery is intact. The carotid bulb has a normal configuration without ulceration or narrowing. The internal carotid artery lumen is smooth without stenosis. The external carotid ar suman is intact. VERTEBRALS: The vertebral arteries have a symmetric diameter. No stenotic lesions are seen. CONCLUSION: 1. 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 Otherwise, normal exam. Ousmane Crawford Jr., MD on December 30, 2016 at 9:29 Board Certified Radiologist. This report was verified electronically.
[2016-12-30 09:44] LABS: BACTERIA, URINE OCC /hpf; BLOOD, URINE MOD (NEG); GLUCOSE,URINE NEG (NEG); KETONE, URINE NEG (NEG); MUCUS URINE FEW /lpf (OCC); NITRITE,URINE NEG (NEG); PH, URINE 7.5 (5.0-8.5); SQUAMOUS EPITHELIAL CELL URINE 14 /hpf (0-5); URINE COLOR LIGHT-YELLOW (YELLW/STRAW)
[2016-12-30] MEDS ORDERED: LORazepam 2 MG/ML VIAL IV PUSH ONE (09:45)
[2016-12-30] MEDS ORDERED: LABETALOL HCL 100 MG/20 ML VIAL IV PUSH PRN (09:45)
[2016-12-30] MEDS ORDERED: SODIUM CHLORIDE 0.9% FLUSH 10 ML FLUSH IV FLUSH PRN (09:45)
[2016-12-30] MEDS ORDERED: ASPIRIN 300 MG SUPP RECTAL ONE (11:00)
[2016-12-30] MEDS: INSULIN ASPART SUPPLEMENTAL SCALE SQ SCH ×3 (12:00→22:22)
[2016-12-30] MEDS: 1/2 NS + KCL 20 MEQ INJ 1,000 ML IV SCH (12:33)
--- NOTE | 2016-12-30 12:59 | RADRPT ---
EXAM DATE/TIME: 12/30/2016 11:52 [facility] COMPARISON: No previous studies available for comparison. INDICATIONS : CVA. Right sided weakness. MEDICAL HISTORY : None. SURGICAL HISTORY : Hysterectomy. ENCOUNTER: Initial ACUITY: 1 day PAIN SCORE: 0/10 LOCATION: Head. Please note a normal MRA of the brain does not entirely exclude the possibility of a small aneurysm, nor the possibility of distal intracranial vessel disease. TECHNIQUE: 3D time of flight MRA was performed. Source images, multiplanar STS MIP, and 3D volume MIP reconstru ctions were reviewed. FINDINGS: There is excellent visualization of the major intracranial arteries out to the second-order branch ve ssels. There is no evidence for aneurysm, vessel truncation or stenosis, and no evidence for vascula r malformation. CONCLUSION: 1. Normal examination. Rudy Mcgee MD on December 30, 2016 at 12:48 Board Certified Radiologist. This report was verified electronically.
--- NOTE | 2016-12-30 13:02 | RADRPT ---
EXAM DATE/TIME: 12/30/2016 11:52 [facility] COMPARISON: No previous studies available for comparison. INDICATIONS : CVA. Right sided weakness since this morning. MEDICAL HISTORY : None. SURGICAL HISTORY : Hysterectomy. ENCOUNTER: Initial ACUITY: 1 day PAIN SCORE: 0/10 LOCATION: Head. TECHNIQUE: Multiplanar, multisequence MRI of the brain was performed without contrast. FINDINGS: CEREBRUM: The examination demonstrates an area of abnormal restricted diffusion involving the left caudate nucl eus and extending down into the lateral aspect of the left basal ganglia. Findings are consistent wit h an area of acute cortical infarction. No mass lesion is identified. The ventricles are normal in si ze and configuration. No abnormal inter or extra-axial fluid collections are seen. No hemorrhage is i dentified. WHITE MATTER: No significant signal abnormalities are seen in the white matter. POSTERIOR FOSSA: The cerebellum and brainstem are intact. The 4th ventricle is midline. The cerebellopontine angle is unremarkable. The cerebellar tonsils are normal in position. DIFFUSION IMAGING: No focal areas of restricted diffusion are seen. No evidence of acute infarction. EXTRACRANIAL: The visualized portions of the orbits and paranasal sinuses are unremarkable. CONCLUSION: There is abnormal diffusion restricted signal involving the left caudate nucleus with extension infer iorly into the lateral aspect of the basal ganglia on the left. Findings are consistent with acute co rtical infarction. Rudy Mcgee MD on December 30, 2016 at 12:59 Board Certified Radiologist. This report was verified electronically.
--- NOTE | 2016-12-30 14:59 | EKG ---
Date Performed: 12/30/2016 Time Performed: 08:51:36 PTAGE: 41 years EKG: Sinus rhythm BORDERLINE LEFT AXIS DEVIATION POSSIBLE RIGHT VENTRICULAR CONDUCTION DELAY BORDERLINE ECG PREVIOUS TRACING : 10/06/2016 13.01 No significant change from previous tracing noted. DOCTOR: Juan Hernandez Interpretating Date/Time 12/30/2016 14:56:45
--- NOTE | 2016-12-30 15:25 | HHI.HP ---
HPI Service CP Hospitalists Primary Care Physician Non-Staff Admission Diagnosis acute cva, uncontrolled hypertension. Chief Complaint: Right-sided weakness and facial droop Travel History International Travel<30 Days: No Contact w/Intl Traveler <30 Da: No Traveled to Known Affected Are: No History of Present Illness This a 41-year-old female patient with past medical history which includes obesity and rheumatoid arthritis. Patient presented to the emergency department today with complaints of right-sided weakness and associated facial droop. Patient reports that she went to bed last night with elevated blood pressure. Patient reports she woke up around 6 this morning initially felt to be herself. Patient was seen by her mother approximal 6:30 this morning appeared to be acting normally. Since that time patient began to have right- sided weakness and right-sided facial droop therefore she proceeded emergency department for further evaluation and treatment. Patient reports she feels as though her symptoms are slightly improved from earlier today. Patient continues to have left sided weakness, facial droop and slurred speech. Patient denies headache, SOB, chest pain or palpations. Review of Systems Constitutional: DENIES: Diaphoretic episodes, Fever, Chills Eyes: DENIES: Blurred vision, Diplopia, Vision loss Respiratory: DENIES: Cough, Sputum production, Shortness of breath Cardiovascular: DENIES: Chest pain, Palpitations, Lower Extremity Edema Gastrointestinal: DENIES: Abdominal pain, Constipation, Diarrhea Musculoskeletal: DENIES: Joint pain, Muscle aches, Joint Swelling Neurologic: COMPLAINS OF: Localized weakness Psychiatric: COMPLAINS OF: Anxiety, DENIES: Confusion, Depression Past Family Social History Past Medical History Obesity and rheumatoid arthritis Past Surgical History Partial hysterectomy Reported Medications Hydrocodone-Acetaminophen 5-325 mg Tab 1 Tab PO Q6H PRN Allergies: Coded Allergies: No Known Allergies (Verified , 12/30/16) Active Ordered Medications Current Medications Medications (Trade) Dose Ordered Sig/Santos Route Start Time Stop Time Status Last Admin (NovoLOG SUPPLEMENTAL SCALE) 1 ACHS SQ 12/30/16 12:00 (D50w (Vial) Inj) 50 ml UNSCH PRN IV PUSH 12/30/16 09:15 (Glucagon Inj) 1 mg UNSCH PRN OTHER 12/30/16 09:15 (NS Flush) 2 ml BID IV FLUSH 12/30/16 21:00 (NS Flush) 2 ml UNSCH PRN IV FLUSH 12/30/16 09:45 (Vasotec Inj) 1.25 mg Q4H PRN IV PUSH 12/30/16 09:45 (Trandate Inj) 10 mg Q2H PRN IV PUSH 12/30/16 09:45 (Aspirin) 325 mg DAILY PO 12/31/16 09:00 (Lipitor) 10 mg HS PO 12/30/16 21:00 Potassium Chloride/Sodium Chloride 1,000 ml @ 100 mls/hr Q10H IV 12/30/16 11:00 12/30/16 12:33 (Tylenol) 650 mg Q4H PRN PO 12/30/16 10:00 Family History noncontributory Social History Rare EtOH use Smokes 2-3 cigarettes per day Physical Exam Vital Signs Vital Signs Date Time Temp Pulse Resp B/P (MAP) Pulse Ox O2 Delivery O2 Flow Rate FiO2 12/30/16 14:51 78 18 151/96 (114) 99 12/30/16 13:34 84 18 145/98 (114) 98 Room Air 12/30/16 12:28 77 18 170/114 (132) 99 Room Air 12/30/16 11:17 64 18 146/103 (117) 100 Room Air 12/30/16 10:15 63 18 169/112 (131) 100 Room Air 12/30/16 09:30 68 18 149/90 (109) 100 Room Air 12/30/16 09:15 59 18 151/99 (116) 99 Room Air 12/30/16 09:09 67 18 151/103 (119) 97 Room Air 12/30/16 09:04 74 18 161/107 (125) 99 Room Air 12/30/16 08:46 98.4 71 18 153/105 (121) 100 Room Air 12/30/16 08:31 73 18 178/106 (130) 99 Room Air 12/30/16 08:20 99 Room Air 12/30/16 08:20 99 Room Air 12/30/16 08:15 180/114 (136) Physical Exam GENERAL: This is an obese, well-developed patient SKIN: No rashes, ecchymoses or lesions. Cool and dry. HEAD: Atraumatic. Normocephalic. No temporal or scalp tenderness. EYES: Extraocular motions intact. No scleral icterus. No injection or drainage. CARDIOVASCULAR: Regular rate and rhythm RESPIRATORY: Clear to auscultation. Breath sounds equal bilaterally. No wheezes , rales, or rhonchi. GASTROINTESTINAL: Abdomen soft, non-tender, nondistended. No hepato-splenomegaly , or palpable masses. No guarding. MUSCULOSKELETAL: Extremities without clubbing, cyanosis, or edema. No joint tenderness, effusion, or edema noted. No calf tenderness. Negative Homans sign bilaterally. NEUROLOGICAL: Awake and alert. right upper and lower extremity weaker than left. right upper and lower extremity 4/5 Sensory grossly within normal limits. Slurred speech with facial droop present Laboratory Laboratory Tests Test 12/30/16 08:20 12/30/16 08:57 White Blood Count 5.8 Red Blood Count 5.02 Hemoglobin 13.0 Bedside Hemoglobin 13.9 Hematocrit 39.6 Bedside Hematocrit 41.0 Mean Corpuscular Volume 78.8 Mean Corpuscular Hemoglobin 26.0 Mean Corpuscular Hemoglobin Concent 32.9 Red Cell Distribution Width 13.9 Platelet Count 179 Mean Platelet Volume 8.6 Neutrophils (%) (Auto) 56.5 Lymphocytes (%) (Auto) 35.5 Monocytes (%) (Auto) 6.6 Eosinophils (%) (Auto) 0.2 Basophils (%) (Auto) 1.2 Neutrophils # (Auto) 3.3 Lymphocytes # (Auto) 2.1 Monocytes # (Auto) 0.4 Eosinophils # (Auto) 0.0 Basophils # (Auto) 0.1 CBC Comment DIFF FINAL Differential Comment Prothrombin Time 9.9 Prothromb Time International Ratio 0.9 Activated Partial Thromboplast Time 27.2 Fibrinogen 699 Bedside Sodium 139 Bedside Potassium 4.1 Bedside Chloride 103 Bedside Blood Urea Nitrogen 11 Bedside Creatinine 0.9 Bedside Glucose 99 Total Creatine Kinase 117 Troponin I LESS THAN 0.02 Human Chorionic Gonadotropin, Quant LESS THAN 1 Urine Color LIGHT-YELLOW Urine Turbidity HAZY Urine pH 7.5 Urine Specific [place] 1.026 Urine Protein 100 Urine Glucose (UA) NEG Urine Ketones NEG Urine Occult Blood MOD Urine Nitrite NEG Urine Bilirubin NEG Urine Urobilinogen LESS THAN 2.0 Urine Leukocyte Esterase SMALL Urine RBC 12 Urine WBC 22 Urine Squamous Epithelial Cells 14 Urine Bacteria OCC Urine Mucus FEW Urine Opiates Screen NEG Urine Barbiturates Screen NEG Urine Amphetamines Screen NEG Urine Benzodiazepines Screen NEG Urine Cocaine Screen NEG Urine Cannabinoids Screen POS Result Diagram: 10/12/17 0820 Imaging Last Impressions Neck CTA 12/30/16825 Signed Impressions: Service Date/Time: December 08:31 - CONCLUSION: 1. 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 Otherwise, normal exam. Ousmane Crawford Jr., MD Head/Neck CTA with Brain Perfusion 12/30/16825 Signed Impressions: Service Date/Time: December 08:26 - CONCLUSION: 1. Negative CT cerebral perfusion. Rudy Mcgee MD Head CTA 12/30/16825 Signed Impressions: Service Date/Time: December 08:31 - CONCLUSION: No acute abnormality. Ousmane Crawford Jr., MD Head Magnetic Resonance Angiography 12/30/16 Signed Impressions: Service Date/Time: December 11:52 - CONCLUSION: 1. Normal examination. Rudy Mcgee MD Head CT 12/30/16 Signed Impressions: Service Date/Time: December 08:19 - CONCLUSION: 1. No acute cranial abnormality. Rudy Mcgee MD Brain MRI 12/30/16 Signed Impressions: Service Date/Time: December 11:52 - CONCLUSION: There is abnormal diffusion restricted signal involving the left caudate nucleus with extension inferiorly into the lateral aspect of the basal ganglia on the left. Findings are consistent with acute cortical infarction. MD Hiral Watsoni VTE Risk Assessment Caprini VTE Risk Assessment: No/Low Risk (score <= 1) Caprini Risk Assessment Model Point Value = 1 Point Value = 2 Point Value = 3 Point Value = 5 Age 41-60 Minor surgery BMI > 25 kg/m2 Swollen legs Varicose veins or History of unexplained or recurrent spontaneous Oral contraceptives or hormone replacement Sepsis (< 1 month) Serious lung disease, including pneumonia (< 1 month) Abnormal pulmonary function Acute myocardial infarction Congestive heart failure (< 1 month) History of inflammatory bowel disease Medical patient at bed rest Age 61-74 Arthroscopic surgery Major open surgery (> 45 min) Laparoscopic surgery (> 45 min) Malignancy Confined to bed (> 72 hours) Immobilizing plaster cast Central venous access Age >= 75 History of VTE Family history of VTE Factor V Leiden Prothrombin [id number] Lupus anticoagulant Anticardiolipin antibodies Elevated serum homocysteine Heparin-induced thrombocytopenia Other congenital or acquired thrombophilia Stroke (< 1 month) Elective arthroplasty Hip, pelvis, or leg fracture Acute spinal cord injury (< 1 month) Prophylaxis Regimen Total Risk Factor Score Risk Level Prophylaxis Regimen 0-1 Low Early ambulation 2 Moderate Order ONE of the following: *Sequential Compression Device (SCD) *Heparin 5000 units SQ BID 3-4 Higher Order ONE of the following medications: *Heparin 5000 units SQ TID *Enoxaparin/Lovenox 40 mg SQ daily (WT < 150 kg, CrCl > 30 mL/min) *Enoxaparin/Lovenox 30 mg SQ daily (WT < 150 kg, CrCl > 10-29 mL/min) *Enoxaparin/Lovenox 30 mg SQ BID (WT < 150 kg, CrCl > 30 mL/min) AND/OR *Sequential Compression Device (SCD) 5 or more Highest Order ONE of the following medications: *Heparin 5000 units SQ TID (Preferred with Epidurals) *Enoxaparin/Lovenox 40 mg SQ daily (WT < 150 kg, CrCl > 30 mL/min) *Enoxaparin/Lovenox 30 mg SQ daily (WT < 150 kg, CrCl > 10-29 mL/min) *Enoxaparin/Lovenox 30 mg SQ BID (WT < 150 kg, CrCl > 30 mL/min) AND *Sequential Compression Device (SCD) Assessment and Plan Problem List: (1) Unilateral weakness ICD Codes: R53.1 - Weakness Plan: CVA The 40-year-old female patient presents to the emergency department with complaints of right-sided weakness and right-sided facial droop. Patient also noted to have elevated blood pressure upon admission 180/114- patient reports she is not on any blood pressure medication at home Consultations placed to Dr. Sahni neurology. Recommendations treating blood pressure of 180/90 or above Aspirin daily Lipitor 10 mg by mouth daily at bedtime Lipid panel in a.m. IV fluids Head CT reviewed and revealed no acute cranial abnormality MRI reviewed and reveal there is abnormal diffusion restricted single involving the let caudate nucleus with extension inferiorly into the lateral aspect of basal ganglia on the left. Findings are consistent with acute cortical infarction Results reviewed with patient MRA reviewed and revealed normal exam Neck CT reviewed and reveals variant anatomy with a replaced right subclavian artery otherwise normal exam Head CT reviewed and revealed no acute abnormality 2-D echocardiogram pending Labs ordered to rule out hypercoagulable state Continuous telemetry monitoring Uncontrolled hypertension Consistent with post CVA sequela Will treat blood pressure 180/90 or above Enalapril as needed for blood pressure greater than 180/95 Rheumatoid arthritis Continue [place] as needed for pain Obesity Recommend heart healthy diet and weight loss Tobacco abuse Patient counselled on tobacco abuse instructed to abstain DVT prophylaxis with SCDs (2) CVA (cerebral vascular accident) ICD Codes: I63.9 - Cerebral infarction, unspecified Status: Acute (3) Uncontrolled hypertension ICD Codes: I10 - Essential (primary) hypertension Status: Acute (4) Tobacco abuse ICD Codes: Z72.0 - Tobacco use Assessment and Plan Patient examined. Assessment and plan formulated with Olinda Sapp PA-C. I agree with the above. Physician Certification 2 Midnight Certification Type: Admission for Inpatient Services Order for Inpatient Services The services are ordered in accordance with Medicare regulations or non- Medicare payer requirements, as applicable. In the case of services not specified as inpatient-only, they are appropriately provided as inpatient services in accordance with the 2-midnight benchmark. Estimated LOS (days): 3 days is the estimated time the patient will need to remain in the hospital, assuming treatment plan goals are met and no additional complications. Post-Hospital Plan: Not yet determined Olinda Sapp Dec 30, 2016 15:25 Mata Aragon DO Jan 02, 2017 00:58
--- NOTE | 2016-12-30 16:35 | ECHRPT ---
Indication: CVA/TIA CONCLUSIONS Normal left ventricular size. Wall thickness is normal. The left ventricular systolic function is normal with an estimated ejection fraction in the range of 55-60%. BP: 149 / 90 HR: 68 Rhythm: MEASUREMENTS (Male / Female) Normal Values Technical Quality: 2D ECHO LV Diastolic Diameter PLAX 4.5 cm 4.2 - 5.9 / 3.9 - 5.3 cm LV Systolic Diameter PLAX 3.3 cm IVS Diastolic Thickness 1.1 cm 0.6 - 1.0 / 0.6 - 0.9 cm LVPW Diastolic Thickness 0.9 cm 0.6 - 1.0 / 0.6 - 0.9 cm LV Relative Wall Thickness 0.4 LA Systolic Diameter LX 3.4 cm 3.0 - 4.0 / 2.7 - 3.8 cm M-MODE Aortic Root Diameter MM 3.3 cm AV Cusp Separation MM 2.2 cm DOPPLER Mitral E Point Velocity 50.5 cm/s Mitral A Point Velocity 45.9 cm/s Mitral E to A Ratio 1.1 TR Peak Velocity 189.0 cm/s TR Peak Gradient 14.3 mmHg Right Atrial Pressure 5.0 mmHg Pulmonary Artery Systolic Pressu 19.3 mmHg Right Ventricular Systolic Press 19.3 mmHg FINDINGS LEFT VENTRICLE Normal left ventricular size. Wall thickness is normal. The left ventricular systolic function is normal with an estimated ejection fraction in the range of 55-60%. RIGHT VENTRICLE Normal right ventricular size and systolic function. LEFT ATRIUM The left atrial size is normal. RIGHT ATRIUM The right atrial size is normal. ATRIAL SEPTUM Normal atrial septal thickness without atrial level shunting by limited color doppler interrogation. AORTA The aortic root and proximal ascending aorta are normal in size on limited imaging. MITRAL VALVE Structurally normal mitral valve. No mitral valve stenosis or regurgitation. AORTIC VALVE Trileaflet aortic valve. No aortic valve stenosis or regurgitation. TRICUSPID VALVE Structurally normal tricuspid valve. No tricuspid valve stenosis or regurgitation. PULMONARY VALVE No pulmonary valve regurgitation or stenosis. VESSELS The inferior vena cava is normal in size. PERICARDIUM No pericardial effusion. Guilherme Aceves MD, FACC (Electronically Signed) Final Date:30 December 2016 16:35
[2016-12-30] MEDS ORDERED: SODIUM CHLORIDE 0.9% FLUSH 5 ML FLUSH IV FLUSH SCH (21:00)
[2016-12-30] MEDS: SODIUM CHLORIDE 0.9% FLUSH 10 ML FLUSH IV FLUSH SCH (21:00)
[2016-12-30] MEDS: ATORVASTATIN 10 MG TAB PO SCH (22:23)
[2016-12-30 23:52] LABS: FREE T4 0.81 NG/DL (0.76-1.46)
[2016-12-31] VITALS (8 sets, daily range): BP systolic 117–139; BP diastolic 76–90; PULSE 73–83; RESP 18; TEMP 97.9–98.5; O2SAT 97–99
[2016-12-31] MEDS: 1/2 NS + KCL 20 MEQ INJ 1,000 ML IV SCH ×3 (04:26→17:00)
[2016-12-31 08:00] LABS: HDL CHOLESTEROL 41.2 MG/DL (40.0-60.0)
[2016-12-31] MEDS: INSULIN ASPART SUPPLEMENTAL SCALE SQ SCH ×4 (08:00→21:00)
[2016-12-31] MEDS: SODIUM CHLORIDE 0.9% FLUSH 10 ML FLUSH IV FLUSH SCH ×2 (09:00→21:00)
[2016-12-31] MEDS: ASPIRIN 325 MG TAB PO SCH (09:24)
--- NOTE | 2016-12-31 15:58 | HHI.PR ---
Subjective Remarks Patient sitting in chair with mom at bedside Patient was able to ambulate with PT earlier today right upper arm weaker than yesterday 03/25 Objective Vitals Vital Signs Date Time Temp Pulse Resp B/P (MAP) Pulse Ox O2 Delivery O2 Flow Rate FiO2 12/31/16 13:26 98 21 12/31/16 11:47 98.5 74 18 119/76 (90) 98 12/31/16 08:00 98.4 77 18 117/76 (90) 97 12/31/16 04:00 97.9 73 18 128/83 (98) 99 12/31/16 00:00 98.0 77 18 132/90 (104) 98 12/30/16 20:00 98.6 75 18 139/96 (110) 97 12/30/16 16:00 97.8 71 18 176/99 (124) 100 Result Diagram: 12/30/16819 Other Results Laboratory Tests Test 12/30/16 08:20 12/30/16 08:57 12/31/16 06:44 White Blood Count 5.8 TH/MM3 Red Blood Count 5.02 MIL/MM3 Hemoglobin 13.0 GM/DL Bedside Hemoglobin 13.9 G/DL Hematocrit 39.6 % Bedside Hematocrit 41.0 % Mean Corpuscular Volume 78.8 FL Mean Corpuscular Hemoglobin 26.0 PG Mean Corpuscular Hemoglobin Concent 32.9 % Red Cell Distribution Width 13.9 % Platelet Count 179 TH/MM3 Mean Platelet Volume 8.6 FL Neutrophils (%) (Auto) 56.5 % Lymphocytes (%) (Auto) 35.5 % Monocytes (%) (Auto) 6.6 % Eosinophils (%) (Auto) 0.2 % Basophils (%) (Auto) 1.2 % Neutrophils # (Auto) 3.3 TH/MM3 Lymphocytes # (Auto) 2.1 TH/MM3 Monocytes # (Auto) 0.4 TH/MM3 Eosinophils # (Auto) 0.0 TH/MM3 Basophils # (Auto) 0.1 TH/MM3 CBC Comment DIFF FINAL Differential Comment Prothrombin Time 9.9 SEC Prothromb Time International Ratio 0.9 RATIO Activated Partial Thromboplast Time 27.2 SEC Fibrinogen 699 mg/dL Bedside Sodium 139 MMOL/L Bedside Potassium 4.1 MMOL/L Bedside Chloride 103 MMOL/L Bedside Blood Urea Nitrogen 11 MG/DL Bedside Creatinine 0.9 MG/DL Bedside Glucose 99 MG/DL Total Creatine Kinase 117 U/L Troponin I LESS THAN 0.02 NG/ML Vitamin B12 Level 453 PG/ML Folate 9.3 NG/ML Free Thyroxine 0.81 NG/DL Thyroid Stimulating Hormone 3rd Gen 1.270 uIU/ML Human Chorionic Gonadotropin, Quant LESS THAN 1 MIU/ML Urine Color LIGHT-YELLOW Urine Turbidity HAZY Urine pH 7.5 Urine Specific [place] 1.026 Urine Protein 100 mg/dL Urine Glucose (UA) NEG mg/dL Urine Ketones NEG mg/dL Urine Occult Blood MOD Urine Nitrite NEG Urine Bilirubin NEG Urine Urobilinogen LESS THAN 2.0 MG/DL Urine Leukocyte Esterase SMALL Urine RBC 12 /hpf Urine WBC 22 /hpf Urine Squamous Epithelial Cells 14 /hpf Urine Bacteria OCC /hpf Urine Mucus FEW /lpf Urine Opiates Screen NEG Urine Barbiturates Screen NEG Urine Amphetamines Screen NEG Urine Benzodiazepines Screen NEG Urine Cocaine Screen NEG Urine Cannabinoids Screen POS Erythrocyte Sedimentation Rate 79 mm/hr Ammonia 27 MCMOL/L Triglycerides Level 211 MG/DL Cholesterol Level 278 MG/DL LDL Cholesterol 195 MG/DL HDL Cholesterol 41.2 MG/DL Cholesterol/HDL Ratio 6.74 RATIO Rapid Plasma Reagin NON-REACTIVE Imaging Last Impressions Neck CTA 12/30/16825 Signed Impressions: Service Date/Time: December 08:31 - CONCLUSION: 1. 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 Otherwise, normal exam. Ousmane Crawford Jr., MD Head/Neck CTA with Brain Perfusion 12/30/16825 Signed Impressions: Service Date/Time: December 08:26 - CONCLUSION: 1. Negative CT cerebral perfusion. Rudy Mcgee MD Head CTA 12/30/16825 Signed Impressions: Service Date/Time: December 08:31 - CONCLUSION: No acute abnormality. Ousmane Crawford Jr., MD Head Magnetic Resonance Angiography 12/30/16 Signed Impressions: Service Date/Time: December 11:52 - CONCLUSION: 1. Normal examination. Rudy Mcgee MD Head CT 12/30/16 Signed Impressions: Service Date/Time: December 08:19 - CONCLUSION: 1. No acute cranial abnormality. Rudy Mcgee MD Brain MRI 10/12/17 0000 Signed Impressions: Service Date/Time: December 11:52 - CONCLUSION: There is abnormal diffusion restricted signal involving the left caudate nucleus with extension inferiorly into the lateral aspect of the basal ganglia on the left. Findings are consistent with acute cortical infarction. Rudy Mcgee MD Objective Remarks GENERAL: This is an obese, well-developed patient CARDIOVASCULAR: Regular rate and rhythm RESPIRATORY: Clear to auscultation. Breath sounds equal bilaterally. Breath sounds equal bilaterally. No wheezes, rales, or rhonchi. GASTROINTESTINAL: Abdomen soft, non-tender, nondistended. No hepato-splenomegaly , or palpable masses. No guarding. MUSCULOSKELETAL: Extremities without clubbing, cyanosis, or edema. No joint tenderness, effusion, or edema noted. No calf tenderness. Negative Homans sign bilaterally. NEUROLOGICAL: speech with mild/moderate dysarthria, extraocular motility normal right facial droop remains, MOTOR 1/5 RUE. 4/5 RLE 5/5 LUE, 5/5 LLE A/P Problem List: (1) Unilateral weakness ICD Codes: R53.1 - Weakness Plan: CVA The 40-year-old female patient presents to the emergency department with complaints of right-sided weakness and right-sided facial droop. Patient also noted to have elevated blood pressure upon admission 180/114- patient reports she is not on any blood pressure medication at home Consultations placed to Dr. Sahni neurology. Recommendations treating blood pressure of 180/90 or above Aspirin daily Lipitor 10 mg by mouth daily at bedtime Lipid panel in a.m. IV fluids Head CT reviewed and revealed no acute cranial abnormality MRI reviewed and reveal there is abnormal diffusion restricted single involving the let caudate nucleus with extension inferiorly into the lateral aspect of basal ganglia on the left. Findings are consistent with acute cortical infarction Results reviewed with patient MRA reviewed and revealed normal exam Neck CT reviewed and reveals variant anatomy with a replaced right subclavian artery otherwise normal exam Head CT reviewed and revealed no acute abnormality 2-D echocardiogram pending Labs ordered to rule out hypercoagulable state Continuous telemetry monitoring consult PT/OT and speech Dr. Aragon discussed case with Dr. Sahni patient not yet ready for discharge Uncontrolled hypertension Consistent with post CVA sequela Will treat blood pressure 180/90 or above Enalapril as needed for blood pressure greater than 180/95 Rheumatoid arthritis Continue [place] as needed for pain Obesity Recommend heart healthy diet and weight loss Tobacco abuse Patient counselled on tobacco abuse instructed to abstain DVT prophylaxis with SCDs (2) CVA (cerebral vascular accident) ICD Codes: I63.9 - Cerebral infarction, unspecified Status: Acute (3) Uncontrolled hypertension ICD Codes: I10 - Essential (primary) hypertension Status: Acute (4) Tobacco abuse ICD Codes: Z72.0 - Tobacco use Assessment and Plan Patient examined. Assessment and plan formulated with Olinda Sapp PA-C. I agree with the above. Olinda Sapp Dec 31, 2016 15:58 Mata Aragon DO Jan 02, 2017 00:55
[2016-12-31 16:52] LABS: HEMOGLOBIN A1a 1.3 %; HEMOGLOBIN A1b 0.8 %; HEMOGLOBIN Ao 87.1 %; HEMOGLOBIN LA1C 1.2 %; HEMOGLOBIN P3 2.8 %
--- NOTE | 2016-12-31 19:37 | HHI.PR ---
Review/Management Diagnosis left hemisphere cva Plan asa 325 mg daily statin radha to elevated LDL rehab---consider inpatient rehab vs out patient PT after dc. consult cardiology to consider blayne follow up on hypercoag labs. Diagnosis/Plan: Subjective Subjective Comments No acute events reported She feels her speech is improving very weak right arm Active Medications Current Medications Medications (Trade) Dose Ordered Sig/Santos Route Start Time Stop Time Status Last Admin (NovoLOG SUPPLEMENTAL SCALE) 1 ACHS SQ 12/30/16 12:00 (D50w (Vial) Inj) 50 ml UNSCH PRN IV PUSH 12/30/16 09:15 (Glucagon Inj) 1 mg UNSCH PRN OTHER 12/30/16 09:15 (NS Flush) 2 ml BID IV FLUSH 12/30/16 21:00 (NS Flush) 2 ml UNSCH PRN IV FLUSH 12/30/16 09:45 (Vasotec Inj) 1.25 mg Q4H PRN IV PUSH 12/30/16 09:45 (Trandate Inj) 10 mg Q2H PRN IV PUSH 12/30/16 09:45 (Aspirin) 325 mg DAILY PO 12/31/16 09:00 12/31/16 09:24 (Lipitor) 10 mg HS PO 12/30/16 21:00 12/30/16 22:23 Potassium Chloride/Sodium Chloride 1,000 ml @ 100 mls/hr Q10H IV 12/30/16 11:00 12/31/16 04:26 (Tylenol) 650 mg Q4H PRN PO 12/30/16 10:00 Allergies Allergies Coded Allergies No Known Allergies ([id number]/12/17) Exam I&O / VS 12/31/16 12/31/16 01/01/17 15:00 23:00 07:00 Output Total 1200 ml Balance -1200 ml Output Urine Total 1200 ml # Voids 2 # Bowel Movements 0 Vital Signs Date Time Temp Pulse Resp B/P (MAP) Pulse Ox O2 Delivery O2 Flow Rate FiO2 12/31/16 16:47 98.5 83 18 129/77 (94) 99 12/31/16 13:26 98 21 12/31/16 11:47 98.5 74 18 119/76 (90) 98 12/31/16 08:00 98.4 77 18 117/76 (90) 97 12/31/16 04:00 97.9 73 18 128/83 (98) 99 12/31/16 00:00 98.0 77 18 132/90 (104) 98 12/30/16 20:00 98.6 75 18 139/96 (110) 97 Exam Comments alert, speech with mild to moderate dysarthria CN--perrl, extraoccular motility normal right upper motor neuron CN 7 palsey MOTOR 1/5 RUE. 4/5 RLE 5/5 LUE, 5/5 LLE Objective Radiology Results MRI brain is consistent with acute cva left caudate nucleus/internal capsule Micro and Labs Laboratory Tests Test 12/31/16 06:44 12/31/16 17:10 Erythrocyte Sedimentation Rate 79 Ammonia 27 Triglycerides Level 211 Cholesterol Level 278 LDL Cholesterol 195 HDL Cholesterol 41.2 Cholesterol/HDL Ratio 6.74 Rapid Plasma Reagin NON-REACTIVE Lab Scanned Report Lab Reports - Other Heath Sahni PhD Dec 31, 2016 19:37
[2016-12-31] MEDS: ATORVASTATIN 10 MG TAB PO SCH (22:18)
[2017-01-01] VITALS (10 sets, daily range): BP systolic 134–145; BP diastolic 85–100; PULSE 73–87; RESP 16–20; TEMP 97.7–99.1; O2SAT 94–100
[2017-01-01] MEDS: 1/2 NS + KCL 20 MEQ INJ 1,000 ML IV SCH (03:00)
[2017-01-01] MEDS: ACETAMINOPHEN 325 MG TAB PO PRN ×2 (06:57→20:37)
[2017-01-01] MEDS: INSULIN ASPART SUPPLEMENTAL SCALE SQ SCH ×4 (08:00→21:00)
--- NOTE | 2017-01-01 08:05 | HM ---
Date Performed: 12/30/2016 Time Performed: 13:58:00 HOOKUP DATE: 12/30/16 01:58:00 PM Ekta ANALYSIS START TIME: 12/30/2016 2:03:00 PM ANALYSIS END TIME: 12/31/2016 2:06:59 PM PATIENT AGE: 41 PATIENT HEIGHT PATIENT WEIGHT: 239 DRUG LIST PATIENT DIAGNOSIS: STROKE TEST NARRATIVE: The patient's average heart rate was 78 BPM. No episodes of tachycardia wer e noted. No episodes of bradycardia were noted. No pauses exceeding 2.0 seconds were noted. 10 ventricular ectopics, which represented < 1% of the total beat count, were noted. The highest rito tricular ectopic frequency occurred from 08:00 PM to 09:00 PM Ekta. During this time 7 VE(s) occurred . Ventricular ectopics were observed as 10 isolated beat(s) only. No couplets or runs were noted. No supraventricular ectopics were noted. No episodes of ST depression (defined as -1.0 mm or m ore) were noted in channel 1. No episodes of ST depression (defined as -1.0 mm or more) were noted i n channel 2. No episodes of ST depression (defined as -1.0 mm or more) were noted in channel 3. No diary was returned. TEST INTERPRETATION: No diary was returned. The underlying rhythm is Sinus rhythm with average rate 78 bpm and range of 59-108 bpm. Rare isolated premature ventricular contractions are seen. No significant pauses are present. Signed by : Gatito Martinez
[2017-01-01] MEDS: ASPIRIN 325 MG TAB PO SCH (09:38)
[2017-01-01] MEDS: SODIUM CHLORIDE 0.9% FLUSH 10 ML FLUSH IV FLUSH SCH ×2 (09:39→20:37)
--- NOTE | 2017-01-01 10:24 | HHI.PR ---
Subjective Remarks Patient reports she feels as though her left upper extremity is getting weaker Objective Vitals Vital Signs Date Time Temp Pulse Resp B/P (MAP) Pulse Ox O2 Delivery O2 Flow Rate FiO2 01/01/17 06:53 80 01/01/17 04:00 98.0 79 19 144/91 (108) 97 01/01/17 00:00 97.7 77 18 134/86 (102) 100 12/31/16 20:05 73 12/31/16 20:00 98.4 77 18 139/76 (97) 98 12/31/16 16:47 98.5 83 18 129/77 (94) 99 12/31/16 13:26 98 21 12/31/16 11:47 98.5 74 18 119/76 (90) 98 Result Diagram: 12/30/16819 Other Results Laboratory Tests Test 12/30/16 08:20 12/30/16 08:57 12/31/16 06:44 12/31/16 17:10 White Blood Count 5.8 TH/MM3 Red Blood Count 5.02 MIL/MM3 Hemoglobin 13.0 GM/DL Bedside Hemoglobin 13.9 G/DL Hematocrit 39.6 % Bedside Hematocrit 41.0 % Mean Corpuscular Volume 78.8 FL Mean Corpuscular Hemoglobin 26.0 PG Mean Corpuscular Hemoglobin Concent 32.9 % Red Cell Distribution Width 13.9 % Platelet Count 179 TH/MM3 Mean Platelet Volume 8.6 FL Neutrophils (%) (Auto) 56.5 % Lymphocytes (%) (Auto) 35.5 % Monocytes (%) (Auto) 6.6 % Eosinophils (%) (Auto) 0.2 % Basophils (%) (Auto) 1.2 % Neutrophils # (Auto) 3.3 TH/MM3 Lymphocytes # (Auto) 2.1 TH/MM3 Monocytes # (Auto) 0.4 TH/MM3 Eosinophils # (Auto) 0.0 TH/MM3 Basophils # (Auto) 0.1 TH/MM3 CBC Comment DIFF FINAL Differential Comment Prothrombin Time 9.9 SEC Prothromb Time International Ratio 0.9 RATIO Activated Partial Thromboplast Time 27.2 SEC Fibrinogen 699 mg/dL Bedside Sodium 139 MMOL/L Bedside Potassium 4.1 MMOL/L Bedside Chloride 103 MMOL/L Bedside Blood Urea Nitrogen 11 MG/DL Bedside Creatinine 0.9 MG/DL Bedside Glucose 99 MG/DL Hemoglobin A1c 5.3 % Total Creatine Kinase 117 U/L Troponin I LESS THAN 0.02 NG/ML Vitamin B12 Level 453 PG/ML Folate 9.3 NG/ML Free Thyroxine 0.81 NG/DL Thyroid Stimulating Hormone 3rd Gen 1.270 uIU/ML Human Chorionic Gonadotropin, Quant LESS THAN 1 MIU/ML Urine Color LIGHT-YELLOW Urine Turbidity HAZY Urine pH 7.5 Urine Specific [place] 1.026 Urine Protein 100 mg/dL Urine Glucose (UA) NEG mg/dL Urine Ketones NEG mg/dL Urine Occult Blood MOD Urine Nitrite NEG Urine Bilirubin NEG Urine Urobilinogen LESS THAN 2.0 MG/DL Urine Leukocyte Esterase SMALL Urine RBC 12 /hpf Urine WBC 22 /hpf Urine Squamous Epithelial Cells 14 /hpf Urine Bacteria OCC /hpf Urine Mucus FEW /lpf Urine Opiates Screen NEG Urine Barbiturates Screen NEG Urine Amphetamines Screen NEG Urine Benzodiazepines Screen NEG Urine Cocaine Screen NEG Urine Cannabinoids Screen POS Erythrocyte Sedimentation Rate 79 mm/hr Ammonia 27 MCMOL/L Triglycerides Level 211 MG/DL Cholesterol Level 278 MG/DL LDL Cholesterol 195 MG/DL HDL Cholesterol 41.2 MG/DL Cholesterol/HDL Ratio 6.74 RATIO Rapid Plasma Reagin NON-REACTIVE Lab Scanned Report Lab Reports - Other [id number] Imaging Last Impressions Neck CTA 12/30/16825 Signed Impressions: Service Date/Time: December 08:31 - CONCLUSION: 1. 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 Otherwise, normal exam. Ousmane Crawford Jr., MD Head/Neck CTA with Brain Perfusion 12/30/16825 Signed Impressions: Service Date/Time: December 08:26 - CONCLUSION: 1. Negative CT cerebral perfusion. Rudy Mcgee MD Head CTA 12/30/16825 Signed Impressions: Service Date/Time: December 08:31 - CONCLUSION: No acute abnormality. Ousmane Crawford Jr., MD Head Magnetic Resonance Angiography 12/30/16 Signed Impressions: Service Date/Time: December 11:52 - CONCLUSION: 1. Normal examination. Rudy Mcgee MD Head CT 12/30/16 Signed Impressions: Service Date/Time: December 08:19 - CONCLUSION: 1. No acute cranial abnormality. Rudy Mcgee MD Brain MRI 12/30/16 0000 Signed Impressions: Service Date/Time: December 11:52 - CONCLUSION: There is abnormal diffusion restricted signal involving the left caudate nucleus with extension inferiorly into the lateral aspect of the basal ganglia on the left. Findings are consistent with acute cortical infarction. Rudy Mcgee MD Objective Remarks GENERAL: This is an obese, well-developed patient CARDIOVASCULAR: Regular rate and rhythm RESPIRATORY: Clear to auscultation. Breath sounds equal bilaterally. Breath sounds equal bilaterally. No wheezes, rales, or rhonchi. GASTROINTESTINAL: Abdomen soft, non-tender, nondistended. No hepato-splenomegaly , or palpable masses. No guarding. MUSCULOSKELETAL: Extremities without clubbing, cyanosis, or edema. No joint tenderness, effusion, or edema noted. No calf tenderness. Negative Homans sign bilaterally. NEUROLOGICAL: speech with mild/moderate dysarthria, extraocular motility normal right facial droop remains, MOTOR 1/5 RUE. 4/5 RLE 5/5 LUE, 5/5 LLE A/P Problem List: (1) Unilateral weakness ICD Codes: R53.1 - Weakness Plan: CVA The 40-year-old female patient presents to the emergency department with complaints of right-sided weakness and right-sided facial droop. Patient also noted to have elevated blood pressure upon admission 180/114- patient reports she is not on any blood pressure medication at home Consultations placed to Dr. Sahni neurology. Recommendations treating blood pressure of 180/90 or above Aspirin daily Lipitor 10 mg by mouth daily at bedtime Lipid panel in a.m. IV fluids Head CT reviewed and revealed no acute cranial abnormality MRI reviewed and reveal there is abnormal diffusion restricted single involving the let caudate nucleus with extension inferiorly into the lateral aspect of basal ganglia on the left. Findings are consistent with acute cortical infarction Results reviewed with patient MRA reviewed and revealed normal exam Neck CT reviewed and reveals variant anatomy with a replaced right subclavian artery otherwise normal exam Head CT reviewed and revealed no acute abnormality 2-D echocardiogram pending Labs ordered to rule out hypercoagulable state Continuous telemetry monitoring consult PT/OT and speech Dr. Aragon discussed case with Dr. Sahni 12/31/16 Neurology ordered a cardiology consult to consider AVRIL Discussed with patient the rehab vs [facility] at time of DC. Patient initially resistant to rehab agreeable to think about it overnight Uncontrolled hypertension Consistent with post CVA sequela Will treat blood pressure 180/90 or above Enalapril as needed for blood pressure greater than 180/95 Rheumatoid arthritis Continue [place] as needed for pain Obesity Recommend heart healthy diet and weight loss Tobacco abuse Patient counselled on tobacco abuse instructed to abstain DVT prophylaxis with SCDs (2) CVA (cerebral vascular accident) ICD Codes: I63.9 - Cerebral infarction, unspecified Status: Acute (3) Uncontrolled hypertension ICD Codes: I10 - Essential (primary) hypertension Status: Acute (4) Tobacco abuse ICD Codes: Z72.0 - Tobacco use Assessment and Plan Patient examined. Assessment and plan formulated with Olinda Sapp PA-C. I agree with the above. Pt with profound weakness at RUE, worse from admission Pt would benefit from intensive PT/OT/ST. I would prefer that pt go to Acute Rehab at the end of this hospitalization. Pt would prefer to go directly to her home and do outpt rehabilitation. AVRIL on Tuesday. Olinda Sapp Jan 01, 2017 10:24 Mata Aragon DO Jan 02, 2017 00:58
--- NOTE | 2017-01-01 11:42 | MB ---
cc: TANK NANCE ALAN S. M.D. DATE OF CONSULTATION: 01/01/17 HISTORY OF PRESENT ILLNESS The patient is a 41-year-old black woman we are asked to see for possible transesophageal echocardiogram. The patient has no cardiac or neurologic history and presented with right-sided weakness and facial droop. She also had mild speech dysarthria. She was not a candidate for TPA because of the duration of symptoms. She was mildly hypertensive. She is still hemiparetic. Imaging was performed where head MRI was normal. Head CT showed no acute abnormality. Brain MRI showed left cordate nucleus abnormalities extending into the lateral basal ganglion on the left. Neck CTA had variant anatomy with replaced right subclavian artery but was otherwise negative. CT cerebral perfusion normal. A followup head CT no acute abnormalities. EKG showed sinus rhythm with borderline left axis deviation and right ventricular conduction defect. Laboratories: CBC normal with mild microcytosis but an elevated sed rate, potassium 4.1, creatinine 0.9, troponin negative, LDL 195. Tox screen positive for cannabis. MEDICATIONS List reviewed. REVIEW OF SYSTEMS Unremarkable except for joint pain prior to this. PAST MEDICAL HISTORY 1. Obesity. 2. Rheumatoid arthritis. 3. Hysterectomy. ALLERGIES NONE. SOCIAL HISTORY She has a boyfriend and smokes a few cigarettes per day and rarely drinks. She has no other drug use. PHYSICAL EXAMINATION VITAL SIGNS: Afebrile, vital signs stable. GENERAL: She is weak on the right side. She is alert and oriented. HEENT: There are no xanthelasma and oropharyngeal mucosa normal. CHEST: Clear. HEART: JVD normal. S1, S2. No murmurs or gallops. ABDOMEN: Benign. EXTREMITIES: Show no cyanosis, clubbing or edema. PULSES: Pulses 1 to 2+ throughout without bruits. She is not ambulated. Echocardiogram shows normal left ventricular function without obvious shunting or significant valvular disease. PROBLEMS 1. Acute CVA with unclear etiology. 2. Markedly elevated LDL. 3. Rheumatoid arthritis. 4. Elevated sedimentation rate. RECOMMENDATIONS 1. The patient has not been getting her sequentials on and I have directly spoken to nursing staff as DVT prophylaxis is important. 2. Risk factor modification per primary service. 3. Tobacco abstinence. 4. Dr. Titus Aceves will be back on Tuesday and I will contact him about pursuing transesophageal echocardiogram which is certainly reasonable. We will be available on an as-needed basis before then. All questions have been answered to her and her boyfriend. MD SILVIA Alvarez/BJDorina /7:24 AM /11:28 AM
[2017-01-01] MEDS ORDERED: MAGNESIUM HYDROXIDE SUSP 30 ML CUP PO PRN (16:45)
[2017-01-01] MEDS ORDERED: BISACODYL 10 MG SUPP RECTAL PRN (16:45)
[2017-01-01] MEDS: ATORVASTATIN 40 MG TAB PO SCH (20:36)
[2017-01-02 00:45] VITALS: BP 140/58; PULSE 74; RESP 20; TEMP 97.5; O2SAT 98
[2017-01-02] MEDS: ACETAMINOPHEN 325 MG TAB PO PRN ×2 (03:29→09:41)
[2017-01-02 06:04] VITALS: BP_SYST 128; BP_SYST 135; BP_DIAS 78; BP_DIAS 87; PULSE 64; PULSE 71; RESP 20; TEMP 98.3; O2SAT 100; O2SAT 96
[2017-01-02 08:34] VITALS: BP 144/89; PULSE 73; RESP 20; TEMP 98.5; O2SAT 100
[2017-01-02] MEDS: SODIUM CHLORIDE 0.9% FLUSH 10 ML FLUSH IV FLUSH SCH ×2 (09:00→21:00)
[2017-01-02] MEDS: ASPIRIN 325 MG TAB PO SCH (09:41)
[2017-01-02 12:14] VITALS: BP 137/90; PULSE 79; RESP 20; TEMP 98.8; O2SAT 100
--- NOTE | 2017-01-02 13:29 | HHI.PR ---
Subjective Remarks Patient reports feeling well overall Right upper extremity now flaccid worse that admission Patient offers no other complaints Objective Vitals Vital Signs Date Time Temp Pulse Resp B/P (MAP) Pulse Ox O2 Delivery O2 Flow Rate FiO2 01/02/17 12:14 98.8 79 20 137/90 (106) 100 01/02/17 08:34 98.5 73 20 144/89 (107) 100 01/02/17 06:04 98.3 71 20 135/87 (103) 100 01/02/17 00:45 97.5 74 20 140/58 (85) 98 01/01/17 20:27 99.1 87 20 137/88 (104) 98 01/01/17 20:18 74 01/01/17 18:24 21 01/01/17 16:00 98.0 77 18 143/100 (114) 98 Result Diagram: 12/30/16819 Other Results Laboratory Tests Test 12/31/16 06:44 12/31/16 17:10 Erythrocyte Sedimentation Rate 79 mm/hr Ammonia 27 MCMOL/L Triglycerides Level 211 MG/DL Cholesterol Level 278 MG/DL LDL Cholesterol 195 MG/DL HDL Cholesterol 41.2 MG/DL Cholesterol/HDL Ratio 6.74 RATIO Rapid Plasma Reagin NON-REACTIVE Lab Scanned Report Lab Reports - Other [id number] Imaging Last Impressions Neck CTA 12/30/16825 Signed Impressions: Service Date/Time: December 08:31 - CONCLUSION: 1. 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 Otherwise, normal exam. Ousmane Crawford Jr., MD Head/Neck CTA with Brain Perfusion 12/30/16825 Signed Impressions: Service Date/Time: December 08:26 - CONCLUSION: 1. Negative CT cerebral perfusion. Rudy Mcgee MD Head CTA 12/30/16825 Signed Impressions: Service Date/Time: December 08:31 - CONCLUSION: No acute abnormality. Ousmane Crawford Jr., MD Head Magnetic Resonance Angiography 12/30/16 Signed Impressions: Service Date/Time: December 11:52 - CONCLUSION: 1. Normal examination. Rudy Mcgee MD Head CT 12/30/16 Signed Impressions: Service Date/Time: December 08:19 - CONCLUSION: 1. No acute cranial abnormality. Rudy Mcgee MD Brain MRI 12/30/16 0000 Signed Impressions: Service Date/Time: December 11:52 - CONCLUSION: There is abnormal diffusion restricted signal involving the left caudate nucleus with extension inferiorly into the lateral aspect of the basal ganglia on the left. Findings are consistent with acute cortical infarction. Rudy Mcgee MD Objective Remarks GENERAL: This is an obese, well-developed patient CARDIOVASCULAR: Regular rate and rhythm RESPIRATORY: Clear to auscultation. Breath sounds equal bilaterally. Breath sounds equal bilaterally. No wheezes, rales, or rhonchi. GASTROINTESTINAL: Abdomen soft, non-tender, nondistended. No hepato-splenomegaly , or palpable masses. No guarding. MUSCULOSKELETAL: Extremities without clubbing, cyanosis, or edema. No joint tenderness, effusion, or edema noted. No calf tenderness. Negative Homans sign bilaterally. NEUROLOGICAL: speech with mild/moderate dysarthria, extraocular motility normal right facial droop remains, MOTOR 0/5 RUE. 4/5 RLE 5/5 LUE, 5/5 LLE A/P Problem List: (1) Unilateral weakness ICD Codes: R53.1 - Weakness Plan: CVA The 40-year-old female patient presents to the emergency department with complaints of right-sided weakness and right-sided facial droop. Patient also noted to have elevated blood pressure upon admission 180/114- patient reports she is not on any blood pressure medication at home Consultations placed to Dr. Sahni neurology. Recommendations treating blood pressure of 180/90 or above Aspirin daily Lipitor 10 mg by mouth daily at bedtime Lipid panel in a.m. IV fluids Head CT reviewed and revealed no acute cranial abnormality MRI reviewed and reveal there is abnormal diffusion restricted single involving the let caudate nucleus with extension inferiorly into the lateral aspect of basal ganglia on the left. Findings are consistent with acute cortical infarction Results reviewed with patient MRA reviewed and revealed normal exam Neck CT reviewed and reveals variant anatomy with a replaced right subclavian artery otherwise normal exam Head CT reviewed and revealed no acute abnormality 2-D echocardiogram pending Labs ordered to rule out hypercoagulable state Continuous telemetry monitoring consult PT/OT and speech Dr. Aragon discussed case with Dr. Sahni 12/31/16 Neurology ordered a cardiology consult, appreciate input Dr. Aceves will be back on Tuesday possible AVRIL on Tuesday, NPO after midnight Discussed with patient the rehab vs HHC at time of DC. Recommending rehab, but patient does not want to go to rehab, would like to go home with HHC Uncontrolled hypertension- improved Consistent with post CVA sequela Will treat blood pressure 180/90 or above Enalapril as needed for blood pressure greater than 180/95 Rheumatoid arthritis Continue [place] as needed for pain Obesity Recommend heart healthy diet and weight loss Tobacco abuse Patient counselled on tobacco abuse instructed to abstain DVT prophylaxis with SCDs (2) CVA (cerebral vascular accident) ICD Codes: I63.9 - Cerebral infarction, unspecified Status: Acute (3) Uncontrolled hypertension ICD Codes: I10 - Essential (primary) hypertension Status: Acute (4) Tobacco abuse ICD Codes: Z72.0 - Tobacco use Status: Chronic Assessment and Plan Patient examined. Assessment and plan formulated with Olinda Sapp PA-C. I agree with the above. AVRIL 01/03/17 Olinda Sapp Jan 02, 2017 13:29 Mata Aragon DO Jan 05, 2017 11:28
[2017-01-02] MEDS: ACETAMINOPHEN/HYDROcodone 325 MG/5 MG TAB PO PRN (15:46)
[2017-01-02 20:01] VITALS: PULSE 78
[2017-01-02 21:31] VITALS: BP 132/98; PULSE 75; RESP 20; TEMP 98.7; O2SAT 98
[2017-01-02] MEDS: ATORVASTATIN 40 MG TAB PO SCH (22:54)
[2017-01-02 23:50] LABS: THROMBIN TIME FOR LA ND sec (13-19)
[2017-01-03] MEDS: ACETAMINOPHEN/HYDROcodone 325 MG/5 MG TAB PO PRN ×2 (00:05→06:20)
[2017-01-03 01:00] VITALS: BP 114/62; PULSE 73; RESP 20; TEMP 98.3; O2SAT 94
[2017-01-03 07:08] VITALS: BP 132/98; PULSE 75; RESP 20; TEMP 98.7; O2SAT 98
[2017-01-03 08:00] VITALS: BP 121/81; PULSE 70; RESP 20; TEMP 98; O2SAT 99
[2017-01-03] MEDS: SODIUM CHLORIDE 0.9% FLUSH 10 ML FLUSH IV FLUSH SCH (09:00)
[2017-01-03] MEDS ORDERED: SODIUM CHLORID 0.9% 500 ML INJ 500 ML IV SCH (09:15)
[2017-01-03] MEDS: ASPIRIN 325 MG TAB PO SCH (09:36)
--- NOTE | 2017-01-03 09:40 | PD.CARD.PN ---
Subjective Subjective Remarks undergoing speech therapy no events Objective Medications Current Medications Medications (Trade) Dose Ordered Sig/Santos Route Start Time Stop Time Status Last Admin (NS Flush) 2 ml BID IV FLUSH 12/30/16 21:00 01/02/17 21:00 (NS Flush) 2 ml UNSCH PRN IV FLUSH 12/30/16 09:45 (Vasotec Inj) 1.25 mg Q4H PRN IV PUSH 12/30/16 09:45 (Trandate Inj) 10 mg Q2H PRN IV PUSH 12/30/16 09:45 (Aspirin) 325 mg DAILY PO 12/31/16 09:00 01/02/17 09:41 (Tylenol) 650 mg Q4H PRN PO 12/30/16 10:00 01/02/17 09:41 (Milk Of Magnesia Liq) 30 ml DAILY PRN PO 01/01/17 16:45 01/01/17 18:35 (Dulcolax Supp) 10 mg ONCE PRN RECTAL 01/01/17 16:45 01/08/17 16:44 (Lipitor) 40 mg HS PO 01/01/17 21:00 01/02/17 22:54 ([place] 5-325 Mg) 1 tab Q6H PRN PO 01/02/17 15:30 01/03/17 06:20 Sodium Chloride 500 ml @ 0 mls/hr CONTINUOUS IV 01/03/17 09:15 01/04/17 09:14 Vital Signs / I&O Vital Signs Date Time Temp Pulse Resp B/P (MAP) Pulse Ox O2 Delivery O2 Flow Rate FiO2 01/03/17 07:08 98.7 75 20 132/98 (109) 98 01/03/17 01:00 98.3 73 20 114/62 (79) 94 01/02/17 21:31 98.7 75 20 132/98 (109) 98 01/02/17 20:01 78 01/02/17 16:46 18 01/02/17 12:14 98.8 79 20 137/90 (106) 100 01/02/17 10:41 17 I/O 01/02/17 01/02/17 01/02/17 01/03/17 01/03/17 01/03/17 07:00 15:00 23:00 07:00 15:00 23:00 Intake Total 240 ml Balance 240 ml Intake Oral 240 ml Physical Exam GENERAL: SKIN: Warm and dry. HEAD: Normocephalic. EYES: No scleral icterus. No injection or drainage. NECK: Supple, trachea midline. No JVD or lymphadenopathy. CARDIOVASCULAR: Regular rate and rhythm without murmurs, gallops, or rubs. RESPIRATORY: Breath sounds equal bilaterally. No accessory muscle use. GASTROINTESTINAL: Abdomen soft, non-tender, nondistended. MUSCULOSKELETAL: No cyanosis, or edema. BACK: Nontender without obvious deformity. No CVA tenderness. Imaging Last Impressions Neck CTA 12/30/16825 Signed Impressions: Service Date/Time: December 08:31 - CONCLUSION: 1. 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 Otherwise, normal exam. Ousmane Crawford Jr., MD Head/Neck CTA with Brain Perfusion 12/30/16825 Signed Impressions: Service Date/Time: December 08:26 - CONCLUSION: 1. Negative CT cerebral perfusion. Rudy Mcgee MD Head CTA 12/30/16825 Signed Impressions: Service Date/Time: December 08:31 - CONCLUSION: No acute abnormality. Ousmane Crawford Jr., MD Head Magnetic Resonance Angiography 12/30/16 Signed Impressions: Service Date/Time: December 11:52 - CONCLUSION: 1. Normal examination. Rudy Mcgee MD Head CT 12/30/16 Signed Impressions: Service Date/Time: December 08:19 - CONCLUSION: 1. No acute cranial abnormality. Rudy Mcgee MD Brain MRI 12/30/16 Signed Impressions: Service Date/Time: December 11:52 - CONCLUSION: There is abnormal diffusion restricted signal involving the left caudate nucleus with extension inferiorly into the lateral aspect of the basal ganglia on the left. Findings are consistent with acute cortical infarction. Rudy Mcgee MD Assessment and Plan Assessment and Plan CVA - AVRIL today. NPO. if negative, 21 day event monitor as outpatient. medical therapy per neuro Minor,Guilherme Marcano MD Jan 03, 2017 09:40
--- NOTE | 2017-01-03 10:34 | HHI.PR ---
Subjective Remarks eager for d/c no complaints Objective Vitals right facial droop right arm flaccid oriented. nad Vital Signs Date Time Temp Pulse Resp B/P (MAP) Pulse Ox O2 Delivery O2 Flow Rate FiO2 01/03/17 07:08 98.7 75 20 132/98 (109) 98 01/03/17 01:00 98.3 73 20 114/62 (79) 94 01/02/17 21:31 98.7 75 20 132/98 (109) 98 01/02/17 20:01 78 01/02/17 16:46 18 01/02/17 12:14 98.8 79 20 137/90 (106) 100 01/02/17 10:41 17 Result Diagram: 12/30/16819 Imaging Last Impressions Neck CTA 12/30/16825 Signed Impressions: Service Date/Time: December 08:31 - CONCLUSION: 1. 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 Otherwise, normal exam. Ousmane Crawford Jr., MD Head/Neck CTA with Brain Perfusion 12/30/16825 Signed Impressions: Service Date/Time: December 08:26 - CONCLUSION: 1. Negative CT cerebral perfusion. Rudy Mcgee MD Head CTA 12/30/16825 Signed Impressions: Service Date/Time: December 08:31 - CONCLUSION: No acute abnormality. Ousmane Crawford Jr., MD Head Magnetic Resonance Angiography 12/30/16 Signed Impressions: Service Date/Time: December 11:52 - CONCLUSION: 1. Normal examination. Rudy Mcgee MD Head CT 12/30/16 Signed Impressions: Service Date/Time: December 08:19 - CONCLUSION: 1. No acute cranial abnormality. Rudy Mcgee MD Brain MRI 12/30/16 Signed Impressions: Service Date/Time: December 11:52 - CONCLUSION: There is abnormal diffusion restricted signal involving the left caudate nucleus with extension inferiorly into the lateral aspect of the basal ganglia on the left. Findings are consistent with acute cortical infarction. Rudy Mcgee MD A/P Problem List: (1) Unilateral weakness ICD Codes: R53.1 - Weakness Plan: CVA The 40-year-old female patient presents to the emergency department with complaints of right-sided weakness and right-sided facial droop. Patient also noted to have elevated blood pressure upon admission 180/114- Head CT reviewed and revealed no acute cranial abnormality MRI reviewed and reveal there is abnormal diffusion restricted single involving the let caudate nucleus with extension inferiorly into the lateral aspect of basal ganglia on the left. Findings are consistent with acute cortical infarction Results reviewed with patient MRA reviewed and revealed normal exam Neck CT reviewed and reveals variant anatomy with a replaced right subclavian artery otherwise normal exam Head CT reviewed and revealed no acute abnormality 2-D echocardiogram asa, lipitor hypercoag panel pending. blayne today. if neg then d/c with 21 day event monitor f/u neurology for pending tests. pt refusing rehab. Uncontrolled hypertension- improved Consistent with post CVA sequela improving Rheumatoid arthritis Continue [place] as needed for pain Obesity Recommend heart healthy diet and weight loss Tobacco abuse Patient counselled on tobacco abuse instructed to abstain DVT prophylaxis with SCDs (2) CVA (cerebral vascular accident) ICD Codes: I63.9 - Cerebral infarction, unspecified Status: Acute (3) Uncontrolled hypertension ICD Codes: I10 - Essential (primary) hypertension Status: Acute (4) Tobacco abuse ICD Codes: Z72.0 - Tobacco use Status: Chronic Hu Brown MD Jan 03, 2017 10:34
--- NOTE | 2017-01-03 10:36 | HHI.FF ---
Face to Face Verification Diagnosis: (1) CVA (cerebral vascular accident) Physical Therapy Order: Evaluate and Treat, Improve ambulation Home Health Nursing Order: Medical education Signs/symptoms of disease process Nursing assessment with vital signs I have seen patient Eugenia Linton on 01/03/17. My clinical findings support the need for the requested home health care services because: Deconditioned w/ increased weakness I certify that my clinical findings support that this patient is homebound because: Need for psychosocial assistance Hu Brown MD Jan 03, 2017 10:36
[2017-01-03 12:21] VITALS: BP 126/85; PULSE 76; RESP 20; TEMP 98.8; O2SAT 97
[2017-01-03] MEDS ORDERED: ASPI325T33 PO (13:43)
[2017-01-03] MEDS ORDERED: ATOR40TA16 PO (13:43)
--- NOTE | 2017-01-03 13:51 | HHI.DS ---
Discharge Summary Admission Date Dec 30, 2016 at 10:32 Discharge Date: Jan 03, 2017 Admitting Diagnosis acute cva, uncontrolled hypertension. (1) Unilateral weakness ICD Codes: R53.1 - Weakness (2) CVA (cerebral vascular accident) ICD Codes: I63.9 - Cerebral infarction, unspecified Status: Acute (3) Uncontrolled hypertension ICD Codes: I10 - Essential (primary) hypertension Status: Acute (4) Tobacco abuse ICD Codes: Z72.0 - Tobacco use Status: Chronic Consultants Dr. Bora Aceves Procedures BLAYNE 01/03/[address] Aceves Brief History This a 41-year-old female patient with past medical history which includes obesity and rheumatoid arthritis. Patient presented to the emergency department today with complaints of right-sided weakness and associated facial droop. Patient reports that she went to bed last night with elevated blood pressure. Patient reports she woke up around 6 this morning initially felt to be herself. Patient was seen by her mother approximal 6:30 this morning appeared to be acting normally. Since that time patient began to have right- sided weakness and right-sided facial droop therefore she proceeded emergency department for further evaluation and treatment. Patient reports she feels as though her symptoms are slightly improved from earlier today. Patient continues to have left sided weakness, facial droop and slurred speech. Patient denies headache, SOB, chest pain or palpations. CBC/BMP: 12/30/16 0820 Significant Findings Laboratory Tests Test 12/31/16 17:10 Imaging Last Impressions Neck CTA 12/30/16825 Signed Impressions: Service Date/Time: December 08:31 - CONCLUSION: 1. 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 Otherwise, normal exam. Ousmane Crawford Jr., MD Head/Neck CTA with Brain Perfusion 12/30/16825 Signed Impressions: Service Date/Time: December 08:26 - CONCLUSION: 1. Negative CT cerebral perfusion. Rudy Mcgee MD Head CTA 12/30/16825 Signed Impressions: Service Date/Time: , December 30, 2016 08:31 - CONCLUSION: No acute abnormality. Ousmane Crawford Jr., MD Head Magnetic Resonance Angiography 12/30/16 0000 Signed Impressions: Service Date/Time: December 11:52 - CONCLUSION: 1. Normal examination. Rudy Mcgee MD Head CT 12/30/16 0000 Signed Impressions: Service Date/Time: December 08:19 - CONCLUSION: 1. No acute cranial abnormality. Rudy Mcgee MD Brain MRI 12/30/16 0000 Signed Impressions: Service Date/Time: December 11:52 - CONCLUSION: There is abnormal diffusion restricted signal involving the left caudate nucleus with extension inferiorly into the lateral aspect of the basal ganglia on the left. Findings are consistent with acute cortical infarction. Rudy Mcgee MD PE at Discharge GENERAL: This is an obese, well-developed patient CARDIOVASCULAR: Regular rate and rhythm RESPIRATORY: Clear to auscultation. GASTROINTESTINAL: Abdomen soft, non-tender, nondistended. MUSCULOSKELETAL: Extremities without clubbing, cyanosis, or edema. No joint tenderness, effusion, or edema noted. No calf tenderness. Negative Homans sign bilaterally. NEUROLOGICAL: speech with mild/moderate dysarthria, extraocular motility normal right facial droop remains, MOTOR 0/5 RUE. 4/5 RLE 5/5 LUE, 5/5 LLE Hospital Course CVA The 40-year-old female patient presents to the emergency department with complaints of right-sided weakness and right-sided facial droop. Patient also noted to have elevated blood pressure upon admission 180/114- Head CT reviewed and revealed no acute cranial abnormality MRI reviewed and reveal there is abnormal diffusion restricted single involving the let caudate nucleus with extension inferiorly into the lateral aspect of basal ganglia on the left. Findings are consistent with acute cortical infarction Results reviewed with patient MRA reviewed and revealed normal exam Neck CT reviewed and reveals variant anatomy with a replaced right subclavian artery otherwise normal exam Head CT reviewed and revealed no acute abnormality 2-D echocardiogram reviewed EF 55-60% asa, lipitor hypercoag panel pending. blayne today, cardiology cleared for d/c- follow up with Dr. Aceves's office for 21 day event monitor f/u neurology for pending tests. pt refusing rehab. Uncontrolled hypertension- improved Consistent with post CVA sequela improving Rheumatoid arthritis Continue [place] as needed for pain Obesity Recommend heart healthy diet and weight loss Tobacco abuse Patient counselled on tobacco abuse instructed to abstain DVT prophylaxis with SCDs Pt Condition on Discharge: Stable Discharge Disposition: Disch w/ Home Health Serv Discharge Instructions DIET: Follow Instructions for: Heart Healthy Diet Speech Therapy-Diet Recommends: Regular Activities you can perform: Regular-No Restrictions Follow up Referrals: Cardiology - Office today with Dr. Aceves Follow up tomorrow with Dr. Aceves's office for 21 days heart monitor Neurology - 2 Weeks with Heath Sahni PhD MD PCP Follow-up - [address] Guardado New Medications: Aspirin DR (Aspirin EC) 325 Mg Tabdr 325 MG PO DAILY for Blood Clot Prevention, #30 TAB 0 Refills Atorvastatin (Atorvastatin) 40 Mg Tab 40 MG PO HS for cholesterol, #30 TAB 0 Refills Continued Medications: Hydrocodone-Acetaminophen (Hydrocodone-Acetaminophen) 5-325 mg Tab 1 TAB PO Q6H PRN for PAIN, #30 TAB 0 Refills Additional Information Outpatient PT/OT/Olinda York Jan 03, 2017 13:51
--- NOTE | 2017-01-03 13:55 | HHI.DCPOC ---
Discharge Care Plan Diagnosis: (1) Hyperlipidemia (2) CVA (cerebral vascular accident) (3) Uncontrolled hypertension (4) Tobacco abuse Goals to Promote Your Health * To prevent worsening of your condition and complications * To maintain your health at the optimal level Directions to Meet Your Goals Take your medications as prescribed Follow your dietary instruction Follow activity as directed Keep your appointments as scheduled Take your immunizations and boosters as scheduled If your symptoms worsen call your PCP, if no PCP go to Urgent Care Center or Emergency Room Smoking is Dangerous to Your Health. Avoid second hand smoke Call the 24-hour hour crisis hotline for domestic abuse at Olinda Sapp Jan 03, 2017 13:55
--- NOTE | 2017-01-03 13:55 | HHI.FF ---
Face to Face Verification Diagnosis: (1) CVA (cerebral vascular accident) Physical Therapy Order: Evaluate and Treat, Improve ambulation Occupational Therapy Order: Evaluate and Treat, Improve ADL, Fine motor coordination Speech Therapy Order: To Improve: Speech and communication skills Home Health Nursing Order: Medical education Signs/symptoms of disease process Nursing assessment with vital signs I have seen patient Eugenia Linton on 01/03/17. My clinical findings support the need for the requested home health care services because: Deconditioned w/ increased weakness I certify that my clinical findings support that this patient is homebound because: Need for psychosocial assistance Hu Brown MD Jan 03, 2017 13:55
[2017-01-03] MEDS ORDERED: LACTATED RINGER'S 1000 ML IV PRN (14:15)
[2017-01-03] MEDS ORDERED: METOPROLOL TARTRATE 25 MG TAB PO PRN (14:15)
[2017-01-03] MEDS ORDERED: INSULIN HUMAN REGULAR 1,000 UNITS/10 ML VIAL SQ PRN (14:15)
[2017-01-03] MEDS ORDERED: CHLORHEXIDINE GLUCONATE 2 % 1 PACK (2 CLOTHS) TOPICAL PRN (14:15)
[2017-01-03] MEDS ORDERED: POVIDONE IODINE 5% (ANTISEPSIS KIT) 4 APPLICATIONS EACH NARE PRN (14:15)
[2017-01-03] MEDS ORDERED: SODIUM CHLORID 0.9% 500 ML IV PRN (14:15)
[2017-01-03] MEDS ORDERED: BISACODYL 10 MG SUPP RECTAL PRN (14:30)
[2017-01-03] MEDS ORDERED: PROPOFOL 200 MG/20 ML AMP ONE (14:38)
[2017-01-03 15:03] VITALS: PULSE 63
[2017-01-03] MEDS ORDERED: MISCELLANEOUS NURSING INFORMATION XX PRN (15:30)
--- NOTE | 2017-01-03 16:19 | ECHRPT ---
Indication: CVA/TIA CONCLUSIONS Normal left ventricular size and wall thickness. The left ventricular systolic function is normal wi th an estimated ejection fraction in the range of 60-65%. Left ventricular diastolic function parameters a re normal. Structurally normal mitral valve. Trace mitral valve regurgitation. No mitral valve stenosis. Normal atrial septal thickness without atrial level shunting by limited color doppler interrogation. No atrial level shunt is observed with agitated saline contrast administration. Normal left atrial appendage size with no evidence of thrombus formation. BP: / HR: Rhythm: Technical Quality: Medications Complications There were no complications prior to, during or in recovery from the transesophag eal echocardiogram.. Proc. Components The patient was brought to the diagnostic imaging area in a fasting state after o btaining an informed consent. The patient was premedicated with IV Versed and IV Fentanyl. The solder cream maker ior pharynx was sprayed with Cetacaine spray and the patient was administered viscous Xylocaine 2 %. The AVRIL probe was passed into the posterior pharynx , mid-esophagus, distal esophagus, and gastric fundus. AVRIL was performed at multiple levels. The patient tolerated the procedure well and there were no complications. The patient was transferred to the floor in satisfactory condition.. FINDINGS LEFT VENTRICLE Normal left ventricular size and wall thickness. The left ventricular systolic function is normal wi th an estimated ejection fraction in the range of 60-65%. Left ventricular diastolic function parameters a re normal. LEFT ATRIUM The left atrial size is normal. RIGHT ATRIUM The right atrial size is normal. ATRIAL APPENDAGES Normal left atrial appendage size with no evidence of thrombus formation. ATRIAL SEPTUM Normal atrial septal thickness without atrial level shunting by limited color doppler interrogation. No atrial level shunt is observed with agitated saline contrast administration. AORTA The aortic root and proximal ascending aorta are normal in size on limited imaging. MITRAL VALVE Structurally normal mitral valve. Trace mitral valve regurgitation. No mitral valve stenosis. AORTIC VALVE Trileaflet aortic valve. No aortic valve stenosis or regurgitation. TRICUSPID VALVE Structurally normal tricuspid valve. No tricuspid valve stenosis or regurgitation. VESSELS The inferior vena cava is normal in size. PULMONARY VALVE The pulmonary valve is not well visualized. PERICADIUM No pericardial effusion. Guilherme Aceves MD, FACC (Electronically Signed) Final Date:03 January 2017 16:18
[2017-01-03 17:06] VITALS: BP 120/81; PULSE 76; RESP 20; TEMP 98.7; O2SAT 98
== END 2017-01-03 18:38 | disposition home health service (06) | DRG 65 ==
LOC: NEPE 08:15 → NEDA 10:32 → N05B 15:02
PROVIDERS: ADMIT Hospitalist; ATTEND Hospitalist
PROC: B24BZZ4 Ultrasonography of Heart with Aorta, Transesophageal (ICD-10-PCS; principal; 2017-01-03)
DX: I63.9 Cerebral infarction, unspecified (principal); G81.91 Hemiplegia, unspecified affecting right dominant side; I10 Essential (primary) hypertension; R29.810 Facial weakness; R47.1 Dysarthria and anarthria; E66.9 Obesity, unspecified; Z68.27 Body mass index [BMI] 27.0-27.9, adult; M06.9 Rheumatoid arthritis, unspecified; E78.5 Hyperlipidemia, unspecified; Z72.0 Tobacco use; M54.5 Low back pain; G89.29 Other chronic pain
CPT/HCPCS: 0042T; 70450; 70496; 70498; 70544; 70551; 80061; 80307; 81001; 81240; 81241; 82140; 82435; 82550; 82565; 82607; 82746; 82947; 82948; 83036; 84132; 84295; 84439; 84443; 84484; 84520; 84702; 85025; 85303; 85306; 85384; 85610; 85613; 85652; 85730; 86147; 86592; 86850; 86900; 86901; 93005; 93225; 93226; 93306; 93312; 93320; 93325; 96361; 96374; J2060; J7030; Q9967